=== PATIENT | female | born 1970 | race Caucasian/White ===

== ENCOUNTER 2020-01-11 09:04 | Emergency (ER) | payer OTHER, SELFPAY ==
[2020-01-11 09:18] VITALS: BP 109/52; PULSE 78; RESP 20; TEMP 36.2; O2SAT 97
--- NOTE | 2020-01-11 09:30 | ED.URI ---
HPI - URI/Sore Throat General Chief Complaint: Upper Respiratory Infection Stated Complaint: SORE THROAT/EARACHE Time Seen by Provider: 01/11/20 09:30 Source: patient and RN notes reviewed History of Present Illness HPI Narrative: Patient is a 49-year-old female that presents the urgent care with complaints of sore throat and bilateral earache. Patient states that started last night and is worse this morning. Patient has taken her daily dose of Claritin but otherwise no other medication [id number] for symptoms. Denies any nausea or vomiting, shortness of breath or cough. No acute distress noted. Patient aware the plan of care. Related Data Home Medications Medication Instructions Recorded Confirmed bupropion HCl 150 mg 24 hr tablet, 150 mg PO DAILY tablet 12/01/19 extended release cholecalciferol (vitamin D3) unit 01/11/20 [Vitamin D3] fluoxetine mg 01/11/20 fluoxetine mg 01/11/20 loratadine [Claritin] 10 mg PO DAILY PRN 01/11/20 01/11/20 Allergies Allergy/AdvReac Type Severity Reaction Status Date / Time hydrocodone AdvReac Intermediate HAS ITCHING Verified 01/11/20 09:14 Review of Systems Review of Systems: Narrative: CONSTITUTIONAL: Denies fever, chills, or sweats. EYES: Denies visual changes, redness, or discharge. ENT: Reports of sore throat bilateral otalgia CARDIOVASCULAR: Denies chest pain, palpitations, or edema. RESPIRATORY: Denies cough or dyspnea. GASTROINTESTINAL: Denies abdominal pain, nausea, vomiting, or diarrhea. GENITOURINARY: Denies dysuria or hematuria. SKIN: Denies rash or itching. MUSCULOSKELETAL: Denies back pain, joint pain, or myalgia. NEUROLOGIC: Denies headache, numbness, or weakness. All other systems reviewed are negative, except as documented in HPI. [facility] Family History Family History (Updated 06/28/17 @ 10:49 by DOCTOR UNKNOWN) Sibling Depression Mother Hypertension Cerebrovascular accident Family history of transient ischemic attacks Father Family history of Alzheimer's disease Family history of blood dyscrasia Other Diabetes mellitus Family history of coronary artery disease Social History Social History Smoking status: Never smoker Alcohol intake: never Comments At the time of my signature, I reviewed and agree with the nursing past medical, surgical, social, and family history. There is no relevant family history pertinent to the patient complaint. Exam Narrative: Exam Narrative: GENERAL: This is a well-nourished, well-developed patient, in no apparent distress. HEAD: normocephalic, atraumatic. EYES: PERRL. Sclera clear/white. Vision is grossly intact. EARS: External ears normal, auditory canals clear and without drainage, TMs normal without perforation. Hearing grossly intact. NOSE: External nose normal with no obvious nasal discharge, nares without redness, no rhinorrhea. THROAT: Mucous membranes moist, posterior pharynx clear. Mild postnasal drainage NECK: Neck supple, non-tender without lymphadenopathy CARDIOVASCULAR: Regular rate and rhythm without murmurs, gallops, or rubs. RESPIRATORY: Clear to auscultation. Breath sounds equal bilaterally. No wheezes, rales, or rhonchi. SKIN: warm, intact with no suspicious lesions or rash, good texture and turgor. NEURO: awake, alert, and oriented to person, place and time. There were no obvious focal neurologic abnormalities. EXTREMITIES: No clubbing, cyanosis, or edema. Course Vital Signs Vital signs: Vital Signs Temperature 97.2 F L 01/11/20 09:18 Pulse Rate 78 01/11/20 09:18 Respiratory Rate 20 01/11/20 09:18 Blood Pressure 109/52 L 01/11/20 09:18 Pulse Oximetry 97 01/11/20 09:18 Temperature 97.2 F L 01/11/20 09:18 Pulse Rate 78 01/11/20 09:18 Respiratory Rate 20 01/11/20 09:18 Blood Pressure 109/52 L 01/11/20 09:18 Pulse Oximetry 97 01/11/20 09:18 Reviewed MDM - URI/Sore Throat MDM Narrative Medical decision making narrative: Reviewed la
== END 2020-01-11 10:05 | disposition home or self-care (01) ==
PROVIDERS: Emergency Provider Nurse Practitioner Family; PCP Family Medicine
DX: B34.9 Viral infection, unspecified (principal); E11.9 Type 2 diabetes mellitus without complications
CPT/HCPCS: 87081; 87880; 99213; G0463

== ENCOUNTER 2020-06-19 20:08 | Emergency (ER) | payer OTHER, SELFPAY ==
--- NOTE | ~2020-06-19 | XR_ITS ---
EXAMINATION: XR chest 1V portable DATE: 06/19/2020 20:59 INDICATION: Cough and shortness of breath TECHNIQUE: frontal view of the chest was obtained. COMPARISON: None FINDINGS: Evaluation is limited by patient body habitus and portable technique. Lungs appear clear with no defi nitive airspace opacities, pulmonary edema, pleural effusion or pneumothorax. The cardiomediastinal s ilhouette is normal. IMPRESSION: 1. No acute cardiopulmonary disease. Evaluation limited by body habitus and portable technique. Reviewed, dictated and finalized at location A. IMPRESSION: 1. No acute cardiopulmonary disease. Evaluation limited by body habitus and por table technique.
[2020-06-19 20:12] VITALS: BP 151/80; PULSE 78; RESP 17; TEMP 36.9; O2SAT 96
--- NOTE | 2020-06-19 20:15 | ECG_ITS ---
Measurements Intervals [place] Rate: 83 P: 31 MO: 170 QRS: -8 QRSD: 84 T: 18 QT: 368 QTc: 435 Interpretive Statements SINUS RHYTHM LOW QRS VOLTAGE IN PRECORDIAL LEADS BORDERLINE R WAVE PROGRESSION, ANTERIOR LEADS BASELINE WANDER- III, V6 BORDERLINE ECG Electronically Signed On 06-20-2020 6:58:27 CDT by Nadeem Mcwilliams D.O.
--- NOTE | 2020-06-19 20:21 | ED.GENADULT ---
HPI - General Adult General Chief complaint: Shortness of Breath/Dyspnea Stated complaint: fatigue, fever, SOB Time Seen by Provider: 06/19/20 20:09 Source: patient Mode of arrival: EMS Limitations: no limitations History of Present Illness HPI narrative: Patient is a 49-year-old female who presents with 3 days duration of cough cold congestion shortness of breath fatigue and weakness patient was tested for COVID today does not know the results does work in the [employer] and has been out shopping but denies any known actual exposures patient on arrival to emergency department is in the room in no distress patient has not taken anything for his symptoms presents per EMS with child Related Data Home Medications Medication Instructions Recorded Confirmed bupropion HCl 150 mg 24 hr tablet, 150 mg PO DAILY tablet 12/01/19 02/24/20 extended release cholecalciferol (vitamin D3) unit 01/11/20 02/24/20 [Vitamin D3] loratadine [Claritin] 10 mg PO DAILY PRN 01/11/20 02/24/20 fluoxetine 20 mg capsule 20 mg PO DAILY cap 02/24/20 02/24/20 fluoxetine 40 mg capsule 40 mg PO DAILY cap 02/24/20 02/24/20 Allergies Allergy/AdvReac Type Severity Reaction Status Date / Time hydrocodone AdvReac Intermediate HAS ITCHING Verified 01/11/20 09:14 Review of Systems Review of Systems: All systems reviewed & are unremarkable except as noted in HPI and below PMFSH Past Medical History Medical History Anxiety Chronic low back pain with sciatica Depression Dyslipidemia Environmental allergies Hernia 2011 Type 2 diabetes mellitus without complication, without long-term current use of insulin Unspecified osteoarthritis, unspecified site Vitamin D deficiency Surgical History Surgical History History of cholecystectomy History of hernia surgery 2008 and 2011 History of prior ablation treatment 2101 from hernia Hx of section 1990, 1994, 1997, 2003, 2010 [place] teeth extracted 1992 Family History Family History Sibling Depression Mother Hypertension Cerebrovascular accident Family history of transient ischemic attacks Father Family history of Alzheimer's disease Family history of blood dyscrasia Other Diabetes mellitus Family history of coronary artery disease Social History Social History Smoking status: Never smoker Alcohol intake: never Gender identity (if verbalized by the patient): Female Exam Narrative: Exam Narrative: GENERAL: Well-appearing, obese, and in no acute distress. HEAD: Normocephalic, atraumatic. EYES: PERRLA and EOMI. ENT: Nares clear, no rhinorrhea or epistaxis. Mucous membranes moist. Oropharynx without tonsillar hypertrophy exudate or other lesions. NECK: Supple. No adenopathy or masses. CHEST: Clear to auscultation. No respiratory distress. No wheezes rales or rhonchi HEART: Regular rate and rhythm. No murmur heard. Normal peripheral pulses. ABDOMEN: Soft, nontender, nondistended EXTREMITIES: Normal range of motion. No edema. SKIN: Warm, dry, no rash. NEURO: No focal deficits. Alert and oriented x3. PSYCH: Normal mood and affect. Course Vital Signs Vital signs: Vital Signs Temperature 98.5 F 06/19/20 20:12 Pulse Rate 78 06/19/20 20:12 Respiratory Rate 17 06/19/20 20:12 Blood Pressure 151/80 H 06/19/20 20:12 Pulse Oximetry 96 06/19/20 20:12 Temperature 98.5 F 06/19/20 20:12 Pulse Rate 78 06/19/20 20:12 Respiratory Rate 17 06/19/20 20:12 Blood Pressure 151/80 H 06/19/20 20:12 Pulse Oximetry 96 06/19/20 20:12 Medical Decision Making MDM Narrative Medical decision making narrative: Patient in the room in no distress felt appropriate for discharge home hemodynamically stable afeb
[2020-06-19] MEDS: SODIUM CHLORIDE 0.9% IV 1,000 ML 999 ML IV CONT (20:31)
[2020-06-19] MEDS: ONDANSETRON INJ 4 MG/2 ML VIAL IV PUSH (20:31)
[2020-06-19 21:07] LABS: Basophils Absolute Auto 0.1 K/mm3 (0.0-0.1); Basophils Percent Auto 0.6 % (0.2-1.2); Eosinophils Absolute Auto 0.2 K/mm3 (0-0.3); Eosinophils Percent Auto 1.8 % (0-4.4); Hemoglobin 15.3 g/dL (12.0-15.0); Immature Granulocyte Absolute 0.05 K/mm3 (0.00-0.031); Immature Granulocyte Percent A 0.5 % (0-0.5); Lymphocytes Absolute Auto 2.62 K/mm3 (0.9-3.2); Lymphocytes Percent Auto 24.2 % (18.3-44.2); Mean Corpuscular HGB Conc 32.6 g/dl (32-36); Mean Corpuscular Hemoglobin 28.2 pg (26-34); Mean Corpuscular Volume 86.7 fl (80-100); Mean Platelet Volume 11.2 fl (7.4-10.4); Monocytes Absolute Auto 0.6 K/mm3 (0.1-0.6); Monocytes Percent Auto 5.5 % (2.6-8.5); Neutrophils Absolute Auto 7.3 K/mm3 (1.3-6.7); Neutrophils Percent Auto 67.4 % (45.5-73.1); Platelet Count Result 281 k/mm3 (150-375); Red Blood Count 5.42 M/mm3 (4.2-5.4); Red Cell Distribution Width 13.4 % (11.5-14.5); White Blood Count 10.8 K/mm3 (4.5-10.0)
[2020-06-19 21:09] LABS: Add Urine Microscopic? YES; Appearance Urine Clear (Clear); Bilirubin Urine Negative (Negative); Blood Urine Negative (Negative); Color Urine Straw (Yellow); Glucose Urine UA 3+ mg/dL (Negative); Ketones Urine Negative (Negative); Leukocyte Esterase Ur Negative LEU/UL (Negative); Mucus Urine Rare /lpf; Nitrate Urine Negative (Negative); Protein Urine Negative (Negative); RBC Urine 0-2 /hpf (0-2); Squamous Epithelial Cell Urine Rare /hpf (Few); Urobilinogen Urine Negative mg/dL (<2.0); WBC Urine 0-3 /hpf
[2020-06-19 21:14] LABS: Partial Thromboplastin Time 24.2 SECONDS (22.3-36.8); Prothrombin Time 12.8 Seconds (11.1-14.7)
[2020-06-19 21:16] LABS: Lactic Acid Reflex 1.5 mmol/L (0.7-2.1)
[2020-06-19 21:34] LABS: Alanine Aminotransferase 78 U/L (4-35); Albumin Level 4.4 g/dL (3.5-5.1); Alkaline Phosphatase 148 U/L (38-126); Anion Gap 9 mmol/L (8-16); Aspartate Amino Transferase 32 U/L (14-36); Bilirubin,Total 0.2 mg/dL (0.2-1.3); Blood Urea Nitrogen 16 mg/dL (7-17); CRP 1.6 mg/dL (<1.0); Calcium 9.4 mg/dL (8.4-10.2); Carbon Dioxide 26 mmol/L (22-30); Chloride 103 mmol/L (98-107); Estimated Glomerular Filt Rate > 60; Glucose 235 mg/dL (65-105); Lipase 171 U/L (23-300); Potassium 4.1 mmol/L (3.4-5.0); Sodium 138 mmol/L (137-145)
[2020-06-19 22:02] VITALS: BP 115/56; PULSE 74; RESP 20; O2SAT 96
== END 2020-06-19 22:04 | disposition home or self-care (01) ==
PROVIDERS: Emergency Medicine Emergency Medical Services; Emergency Provider Emergency Medicine
DX: J06.9 Acute upper respiratory infection, unspecified (principal); F41.9 Anxiety disorder, unspecified; F32.9 Major depressive disorder, single episode, unspecified; E78.5 Hyperlipidemia, unspecified; E11.9 Type 2 diabetes mellitus without complications; E55.9 Vitamin D deficiency, unspecified; M19.90 Unspecified osteoarthritis, unspecified site
CPT/HCPCS: 36415; 71045; 80053; 81001; 83605; 83690; 85025; 85610; 85730; 86140; 87040; 93005; 96361; 96374; 96375; 99284; J0131; J2405; J7030

== ENCOUNTER → 2021-02-09 14:13 | Outpatient (CLI) | payer OTHER, SELFPAY ==
--- NOTE | ~2021-02-09 | MM_ITS ---
EXAMINATION: MM screening [facility] BI w miguel HISTORY: Screening TECHNIQUE: Craniocaudal and mediolateral oblique 3-D tomosynthesis images were obtained and synthetic 2-D images were generated. CAD analysis was submitted and interpreted. COMPARISON: Comparison to multiple prior studies sequentially, with oldest reviewed study dated 01/2012. BREAST PARENCHYMAL COMPOSITION: There are scattered areas of fibroglandular density. FINDINGS: There is no evidence of suspicious mass, calcification, or architectural distortion to sugg est malignancy in either breast. There has been no suspicious interval change. IMPRESSION: 1. No mammographic evidence of malignancy. 2. Recommend routine screening mammography in one year. BI-RADS Category 1: Negative Reviewed, dictated and finalized at location A.
== END ==
PROVIDERS: Visit Provider Nurse Practitioner
DX: Z12.31 Encounter for screening mammogram for malignant neoplasm of breast (principal)
CPT/HCPCS: 77063; 77067

== ENCOUNTER 2021-10-08 12:08 | Emergency (ER) | payer OTHER, SELFPAY ==
[2021-10-08 12:13] VITALS: BP 153/88; PULSE 83; RESP 16; TEMP 36.1; O2SAT 98
--- NOTE | 2021-10-08 12:37 | ED.URI ---
HPI - URI/Sore Throat General Chief Complaint: Upper Respiratory Infection Stated Complaint: sore throat,ear ache Time Seen by Provider: 10/08/21 12:18 Source: patient and RN notes reviewed Mode of arrival: ambulatory Limitations: no limitations History of Present Illness HPI Narrative: Patient presents today complaining of a 2-week history of intermittent sore throat, bilateral ear pain, and mild cough. Denies any additional symptoms. She currently rates pain 2/10 and has tried no [id number]-[id number] interventions prior to arrival. 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 MD elicited complaint: sore throat Related Data Home Medications Medication Instructions Recorded Confirmed bupropion HCl 150 mg 24 hr tablet, 150 mg PO DAILY tablet 12/01/19 07/22/21 extended release cholecalciferol (vitamin D3) unit 01/11/20 07/22/21 [Vitamin D3] loratadine [Claritin] 10 mg PO DAILY PRN 01/11/20 07/22/21 fluoxetine 20 mg capsule 20 mg PO DAILY cap 02/24/20 07/22/21 fluoxetine 40 mg capsule 40 mg PO DAILY cap 02/24/20 07/22/21 Allergies Allergy/AdvReac Type Severity Reaction Status Date / Time hydrocodone AdvReac Intermediate HAS ITCHING Verified 07/22/21 09:41 Review of Systems Review of Systems: CONSTITUTIONAL: Denies body aches, fever, chills, or sweats. EYES: Denies visual changes, redness, or discharge. ENT: Denies rhinorrhea, congestion. + Sore throat, ear pain CARDIOVASCULAR: Denies chest pain, palpitations, or edema. RESPIRATORY: Denies dyspnea.+ Cough GASTROINTESTINAL: Denies abdominal pain, nausea, vomiting, or diarrhea. GENITOURINARY: Denies dysuria or hematuria. SKIN: Denies rash, itching, or wounds. MUSCULOSKELETAL: Denies back pain, joint pain, or myalgia. NEUROLOGIC: Denies headache, numbness, tingling, or weakness. PSYCH: Denies depression or anxiety. [facility] Past Medical History Medical History (Updated 10/08/21 @ 12:40 by Elizabeth Russell, [employer]DER, [place]) Anxiety Chronic low back pain with sciatica Depression Dyslipidemia Environmental allergies Hernia 2012 Type 2 diabetes mellitus without complication, without long-term current use of insulin Unspecified osteoarthritis, unspecified site Vitamin D deficiency Surgical History Surgical History History of cholecystectomy History of hernia surgery 2008 and 2011 History of prior ablation treatment 2101 from hernia Hx of section 1990, 1994, 1997, 2003, 2010 [place] teeth extracted 1992 Family History Family History Sibling Depression Mother Hypertension Cerebrovascular accident Family history of transient ischemic attacks Father Family history of Alzheimer's disease Family history of blood dyscrasia Other Diabetes mellitus Family history of coronary artery disease Social History Social History Smoking status: Former smoker Alcohol intake: never Gender identity (if verbalized by the patient): Female Comments At time of signature, I have reviewed and agree with nursing past medical, surgical, social and family history unless otherwise noted. Please see nursing chart for further information. There is no relevant family history pertinent to the presenting complaint Exam Narrative: GENERAL: Well-appearing, well-nourished, and in no acute distress. HEAD: Normocephalic, atraumatic. EYES: EOMI. No redness or drainage. Conjunctivae normal. ENT: Mucous membranes pink and moist. Nares clear. No rhinorrhea. TMs normal bilaterally. Throat normal. Uvula midline. NECK: Normal AROM. Supple. No lymphadenopathy. CHEST: No respiratory distress. Clear to auscultation. HEART: Regular rate and rhythm. No murmur appreciated. Normal peripheral pulses. EXTREMITIES: Normal range of mot
== END 2021-10-08 12:46 | disposition home or self-care (01) ==
PROVIDERS: Emergency Provider Nurse Practitioner; PCP Family Medicine
DX: J06.9 Acute upper respiratory infection, unspecified (principal); Z87.891 Personal history of nicotine dependence; E78.5 Hyperlipidemia, unspecified; E11.9 Type 2 diabetes mellitus without complications; M19.90 Unspecified osteoarthritis, unspecified site; E55.9 Vitamin D deficiency, unspecified
CPT/HCPCS: 87081; 87880; 99213; G0463

== ENCOUNTER → 2022-09-04 14:02 | Outpatient (CLI) | payer OTHER, SELFPAY ==
--- NOTE | ~2022-09-04 | MM_ITS ---
EXAMINATION: MM screening [facility] BI w miguel HISTORY: Screening mammogram TECHNIQUE: Craniocaudal and mediolateral oblique 3-D tomosynthesis images were obtained and synthetic 2-D images were generated. CAD analysis was submitted and interpreted. COMPARISON: 02/09/2021, 05/29/2017 bilateral screening mammogram examinations BREAST PARENCHYMAL COMPOSITION: The breasts are almost entirely fatty. FINDINGS: There is no evidence of suspicious mass, calcification, or architectural distortion to sugg est malignancy in either breast. There has been no suspicious interval change. IMPRESSION: 1. No mammographic evidence of malignancy. 2. Recommend routine screening mammography in one year. BI-RADS Category 1: Negative Reviewed, dictated and finalized at location A. [facility]
== END ==
PROVIDERS: PCP Family Medicine; Visit Provider Obstetrics & Gynecology Gynecology
DX: Z12.31 Encounter for screening mammogram for malignant neoplasm of breast (principal)
CPT/HCPCS: 77063; 77067

== ENCOUNTER 2022-09-20 08:25 | Outpatient (CLI) | payer OTHER, SELFPAY ==
[2022-09-20 18:30] LABS: Basophils Absolute Auto 0.1 K/mm3 (0.0-0.1); Basophils Percent Auto 1.1 % (0.2-1.2); Eosinophils Absolute Auto 0.1 K/mm3 (0-0.3); Eosinophils Percent Auto 1.7 % (0-4.4); Hematocrit 50.1 % (37.0-47.0); Hemoglobin 15.6 g/dL (12.0-15.0); Immature Granulocyte Absolute 0.03 K/mm3 (0.00-0.031); Immature Granulocyte Percent A 0.4 % (0-0.5); Lymphocytes Absolute Auto 2.85 K/mm3 (0.9-3.2); Lymphocytes Percent Auto 34.6 % (18.3-44.2); Mean Corpuscular HGB Conc 31.1 g/dl (32-36); Mean Corpuscular Hemoglobin 28.3 pg (26-34); Mean Corpuscular Volume 90.8 fl (80-100); Mean Platelet Volume 11.4 fl (7.4-10.4); Monocytes Absolute Auto 0.6 K/mm3 (0.1-0.6); Monocytes Percent Auto 6.8 % (2.6-8.5); Neutrophils Absolute Auto 4.6 K/mm3 (1.3-6.7); Neutrophils Percent Auto 55.4 % (45.5-73.1); Platelet Count Result 253 k/mm3 (150-375); Red Blood Count 5.52 M/mm3 (4.2-5.4); Red Cell Distribution Width 13.2 % (11.5-14.5); White Blood Count 8.2 K/mm3 (4.5-10.0)
[2022-09-20 18:36] LABS: Hemoglobin A1C 9.1 % (<5.7)
[2022-09-20 18:37] LABS: Alanine Aminotransferase 77 U/L (6-35); Albumin Level 4.3 g/dL (3.5-5.1); Alkaline Phosphatase 133 U/L (38-126); Anion Gap 11 mmol/L (8-16); Aspartate Amino Transferase 62 U/L (14-36); Bilirubin,Total 0.5 mg/dL (0.2-1.3); Blood Urea Nitrogen 18 mg/dL (7-17); Calcium 9.1 mg/dL (8.4-10.2); Carbon Dioxide 27 mmol/L (22-30); Chloride 104 mmol/L (98-107); Cholesterol 198 mg/dL (0-200); Estimated Glomerular Filt Rate > 60; Glucose 177 mg/dL (65-110); HDL Direct 47 mg/dL; Sodium 142 mmol/L (137-145); Triglycerides 187 mg/dL (<150)
[2022-09-20 18:48] LABS: LDL Cholesterol Direct 106 mg/dL
[2022-09-20 18:54] LABS: Creatinine Urine 64.7 mg/dL
[2022-09-20 18:58] LABS: MALB Creatinine Ratio 47.3 mg/g (0-30); Microalbumin Urine Random 30.6 mg/L (0-16.7)
== END 2022-09-20 08:26 | disposition home or self-care (01) ==
LOC: ANHGOSHLAB 08:30
PROVIDERS: PCP Family Medicine; Visit Provider Nurse Practitioner
DX: E78.5 Hyperlipidemia, unspecified (principal); E11.9 Type 2 diabetes mellitus without complications; E55.9 Vitamin D deficiency, unspecified
CPT/HCPCS: 36415; 80053; 80061; 82043; 82306; 83036; 85025

== ENCOUNTER 2022-11-18 19:24 | Emergency (ER) | payer OTHER, SELFPAY ==
[2022-11-18 19:43] VITALS: BP 117/82; PULSE 110; RESP 16; TEMP 36; O2SAT 97
--- NOTE | 2022-11-18 19:51 | ED.GENADULT ---
HPI - General Adult General Chief complaint: Upper Respiratory Infection Stated complaint: sore throat, ear pain Source: patient Mode of arrival: ambulatory Limitations: no limitations History of Present Illness HPI narrative: Patient presents for evaluation of sore throat for the last 2 days. She states that it hurts to swallow. She no his right-sided ear pain. She denies any fever, chills, nausea, vomiting. She has an occasional cough and states that her sore throat is worse when coughing. No identified recent specific sick contacts. 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 She has been exposed to several individuals were not wearing masks and her company. She is taking Mucinex and DayQuil with improvement in her symptoms or after. She does not smoke. Related Data Home Medications Medication Instructions Recorded Confirmed bupropion HCl 150 mg 24 hr tablet, 150 mg PO DAILY 12/01/19 08/25/22 extended release (Wellbutrin XL) cholecalciferol (vitamin D3) 100 unit 01/11/20 08/25/22 mcg (4,000 unit) capsule (Vitamin D3) loratadine 10 mg tablet (Claritin) 10 mg PO DAILY PRN Congestion 01/11/20 08/25/22 fluoxetine 20 mg capsule 20 mg PO DAILY 02/24/20 08/25/22 fluoxetine 40 mg capsule 40 mg PO DAILY 02/24/20 08/25/22 Allergies Allergy/AdvReac Type Severity Reaction Status Date / Time hydrocodone AdvReac Intermediate HAS ITCHING Verified 11/18/22 19:49 Review of Systems Review of Systems: CONSTITUTIONAL: Denies fever, chills, or sweats. EYES: Denies visual changes, redness, or discharge. ENT: Reports sore throat and right-sided ear pain. Denies congestion or rhinorrhea. CARDIOVASCULAR: Denies chest pain, palpitations, or edema. RESPIRATORY: Reports occasional cough. Denies dyspnea. GASTROINTESTINAL: Denies abdominal pain, nausea, vomiting, or diarrhea. GENITOURINARY: Denies dysuria or hematuria. SKIN: Denies rash or itching. MUSCULOSKELETAL: Denies back pain, joint pain, or myalgia. NEUROLOGIC: Denies headache, numbness, dizziness, or weakness. PSYCHIATRIC: Denies anxiety or depression. [facility] Past Medical History Medical History Anxiety Chronic low back pain with sciatica Depression Dyslipidemia Environmental allergies Hernia 2011 Type 2 diabetes mellitus without complication, without long-term current use of insulin Unspecified osteoarthritis, unspecified site Vitamin D deficiency Surgical History Surgical History History of cholecystectomy History of hernia surgery 2008 and 2011 History of prior ablation treatment 2101 from hernia Hx of section 1990, 1994, 1997, 2003, 2010 [place] teeth extracted 1992 Family History Family History Sibling Depression Mother Hypertension Cerebrovascular accident Family history of transient ischemic attacks Father Family history of Alzheimer's disease Family history of blood dyscrasia Other Diabetes mellitus Family history of coronary artery disease Social History Social History Smoking status: Former smoker Alcohol intake: never Substance use: never Gender identity (if verbalized by the patient): Female Spiritual care concerns: No Exam Narrative: GENERAL: Well-appearing, well-nourished, and in no acute distress. HEAD: Normocephalic, atraumatic. EYES: PERRLA and EOMI. ENT: Nares clear, no rhinorrhea or epistaxis. Mucous membranes moist. There is posterior pharyngeal erythema and white exudate. Uvula is midline.Bilateral TMs pearly briscoe nonbulging NECK: Supple. No adenopathy or masses. No carotid bruits or JVD CHEST: Clear to auscultation. No respiratory distress. No wheezes rales or rhonchi HEART: Regular rate and rhythm. No mur
== END 2022-11-18 19:59 | disposition home or self-care (01) ==
PROVIDERS: Emergency Provider Nurse Practitioner; PCP Nurse Practitioner
DX: J02.9 Acute pharyngitis, unspecified (principal); Z87.891 Personal history of nicotine dependence; E78.5 Hyperlipidemia, unspecified; E11.9 Type 2 diabetes mellitus without complications; M19.90 Unspecified osteoarthritis, unspecified site; E55.9 Vitamin D deficiency, unspecified; F41.9 Anxiety disorder, unspecified; F32.A Depression, unspecified; Z79.84 Long term (current) use of oral hypoglycemic drugs
CPT/HCPCS: 87081; 87880; 99213; G0463

== ENCOUNTER 2023-05-11 08:45 | Outpatient (CLI) | payer OTHER, SELFPAY ==
[2023-05-11 19:16] LABS: Alanine Aminotransferase 73 U/L (6-35); Albumin Level 4.4 g/dL (3.5-5.1); Alkaline Phosphatase 148 U/L (38-126); Anion Gap 9 mmol/L (8-16); Aspartate Amino Transferase 43 U/L (14-36); Bilirubin,Total 0.3 mg/dL (0.2-1.3); Blood Urea Nitrogen 12 mg/dL (7-17); Calcium 9.8 mg/dL (8.4-10.2); Carbon Dioxide 29 mmol/L (22-30); Chloride 103 mmol/L (98-107); Cholesterol 215 mg/dL (0-200); Estimated Glomerular Filt Rate > 60; Glucose 212 mg/dL (65-110); HDL Direct 41 mg/dL; Potassium 4.4 mmol/L (3.4-5.0); Sodium 141 mmol/L (137-145); Triglycerides 172 mg/dL (<150)
[2023-05-11 19:27] LABS: LDL Cholesterol Direct 127 mg/dL
[2023-05-11 19:34] LABS: Basophils Absolute Auto 0.1 K/mm3 (0.0-0.1); Basophils Percent Auto 1.1 % (0.2-1.2); Eosinophils Absolute Auto 0.1 K/mm3 (0-0.3); Eosinophils Percent Auto 1.5 % (0-4.4); Hematocrit 50.4 % (37.0-47.0); Hemoglobin 16.1 g/dL (12.0-15.0); Immature Granulocyte Absolute 0.03 K/mm3 (0.00-0.031); Immature Granulocyte Percent A 0.3 % (0-0.5); Lymphocytes Absolute Auto 2.84 K/mm3 (0.9-3.2); Lymphocytes Percent Auto 32.1 % (18.3-44.2); Mean Corpuscular HGB Conc 31.9 g/dl (32-36); Mean Corpuscular Hemoglobin 29.1 pg (26-34); Mean Platelet Volume 11.2 fl (7.4-10.4); Monocytes Absolute Auto 0.6 K/mm3 (0.1-0.6); Monocytes Percent Auto 7.1 % (2.6-8.5); Neutrophils Absolute Auto 5.1 K/mm3 (1.3-6.7); Neutrophils Percent Auto 57.9 % (45.5-73.1); Platelet Count Result 266 k/mm3 (150-375); Red Blood Count 5.54 M/mm3 (4.2-5.4); White Blood Count 8.9 K/mm3 (4.5-10.0)
[2023-05-11 20:01] LABS: Vitamin D 25 Hydroxy 52.3 ng/mL
[2023-05-11 20:09] LABS: Hemoglobin A1C 9.5 % (<5.7)
[2023-05-12 01:31] LABS: Creatinine Urine 33.3 mg/dL
[2023-05-12 01:46] LABS: MALB Creatinine Ratio 64.6 mg/g (0-30); Microalbumin Urine Random 21.5 mg/L (0-16.7)
== END 2023-05-11 08:46 | disposition home or self-care (01) ==
LOC: ANHGOSHLAB 08:49
PROVIDERS: PCP Nurse Practitioner; Visit Provider Nurse Practitioner Family
DX: E11.9 Type 2 diabetes mellitus without complications (principal); E78.5 Hyperlipidemia, unspecified; E55.9 Vitamin D deficiency, unspecified
CPT/HCPCS: 36415; 80053; 80061; 82043; 82306; 83036; 85025

== ENCOUNTER 2023-07-25 14:17 | Emergency (ER) | payer OTHER, SELFPAY ==
--- NOTE | ~2023-07-25 | XR_ITS ---
EXAMINATION: XR chest 2V DATE: 07/25/2023 14:55 INDICATION: Right-sided chest pain TECHNIQUE: Frontal and lateral views of the chest are obtained COMPARISON: 06/19/2020 FINDINGS: The lungs are free of acute opacities. No pleural effusion or pneumothorax. The cardiomedia stinal silhouette is normal. There is moderate thoracic spondylosis. IMPRESSION: 1. No acute cardiopulmonary abnormality. Reviewed, dictated and finalized at location F.
--- NOTE | 2023-07-25 14:19 | ECG_ITS ---
Measurements Intervals [place] Rate: 89 P: 52 ME: 176 QRS: -7 QRSD: 70 T: 25 QT: 354 QTc: 433 Interpretive Statements SINUS RHYTHM POSSIBLE LEFT ATRIAL ENLARGEMENT LOW QRS VOLTAGE IN PRECORDIAL LEADS BORDERLINE R WAVE PROGRESSION, ANTERIOR LEADS BORDERLINE ECG COMPARED TO ECG 06/19/2020 20:29:07 NO SIGNIFICANT CHANGES Electronically Signed On 07-25-2023 15:14:48 CDT by Nadeem Mcwilliams D.O.
[2023-07-25 14:30] VITALS: BP 115/86; PULSE 93; RESP 18; TEMP 36.6; O2SAT 99
[2023-07-25 14:34] LABS: Basophils Absolute Auto 0.1 K/mm3 (0.0-0.1); Basophils Percent Auto 0.8 % (0.2-1.2); Eosinophils Absolute Auto 0.1 K/mm3 (0-0.3); Eosinophils Percent Auto 1.3 % (0-4.4); Hematocrit 50.8 % (37.0-47.0); Hemoglobin 16.1 g/dL (12.0-15.0); Immature Granulocyte Absolute 0.04 K/mm3 (0.00-0.031); Immature Granulocyte Percent A 0.4 % (0-0.5); Lymphocytes Absolute Auto 3.16 K/mm3 (0.9-3.2); Lymphocytes Percent Auto 31.4 % (18.3-44.2); Mean Corpuscular HGB Conc 31.7 g/dl (32-36); Mean Corpuscular Hemoglobin 29.4 pg (26-34); Mean Corpuscular Volume 92.9 fl (80-100); Mean Platelet Volume 10.7 fl (7.4-10.4); Monocytes Absolute Auto 0.8 K/mm3 (0.1-0.6); Monocytes Percent Auto 7.6 % (2.6-8.5); Neutrophils Absolute Auto 5.9 K/mm3 (1.3-6.7); Neutrophils Percent Auto 58.5 % (45.5-73.1); Platelet Count Result 276 k/mm3 (150-375); Red Blood Count 5.47 M/mm3 (4.2-5.4); Red Cell Distribution Width 13.2 % (11.5-14.5); White Blood Count 10.1 K/mm3 (4.5-10.0)
[2023-07-25 14:45] LABS: Alanine Aminotransferase 69 U/L (6-35); Albumin Level 4.7 g/dL (3.5-5.1); Alkaline Phosphatase 157 U/L (38-126); Anion Gap 13 mmol/L (8-16); Aspartate Amino Transferase 40 U/L (14-36); Bilirubin,Total 0.5 mg/dL (0.2-1.3); Blood Urea Nitrogen 11 mg/dL (7-17); Calcium 9.3 mg/dL (8.4-10.2); Carbon Dioxide 19 mmol/L (22-30); Chloride 106 mmol/L (98-107); Estimated CRCL calculation 134 ml/min; Estimated Glomerular Filt Rate > 60; Glucose 263 mg/dL (65-110); Lipase 247 U/L (23-300); Potassium 3.9 mmol/L (3.4-5.0); Sodium 138 mmol/L (137-145)
[2023-07-25 14:46] LABS: INR 0.9; Prothrombin Time 12.4 Seconds (11.1-14.7)
[2023-07-25 14:55] LABS: Troponin I < 0.012 ng/mL (0.000-0.034)
--- NOTE | 2023-07-25 16:04 | ED.CHESTPAIN ---
HPI - Chest Pain General Chief Complaint: Chest Pain Stated Complaint: chest pain Time Seen by Provider: 07/25/23 15:53 History of Present Illness HPI narrative: 52-year-old female history of diabetes anxiety depression presents to the emergency room for evaluation of right anterior chest wall discomfort. Patient states that this happened with no precipitating events earlier today. Pain is worse with inspiration. Denies any palpitation shortness of breath difficulty breathing. Patient does endorse recent history of coughing. Pain does not radiate. Has not taken any medications to alleviate her symptoms. Denies fevers. Related Data Home Medications Medication Instructions Recorded Confirmed bupropion HCl 150 mg 24 hr tablet, 150 mg PO DAILY 12/01/19 02/28/23 extended release (Wellbutrin XL) cholecalciferol (vitamin D3) 100 4,000 unit PO DIRECTED 01/11/20 02/28/23 mcg (4,000 unit) capsule (Vitamin D3) loratadine 10 mg tablet (Claritin) 10 mg PO DAILY PRN Congestion 01/11/20 02/28/23 fluoxetine 20 mg capsule 20 mg PO DAILY 02/24/20 02/28/23 fluoxetine 40 mg capsule 40 mg PO DAILY 02/24/20 02/28/23 Allergies Allergy/AdvReac Type Severity Reaction Status Date / Time hydrocodone AdvReac Intermediate HAS ITCHING Verified 11/18/22 19:49 Review of Systems Review of Systems: CONSTITUTIONAL: Denies fever, chills, or sweats. EYES: Denies visual changes, redness, or discharge. ENT: Denies rhinorrhea, congestion, sore throat, or otalgia. CARDIOVASCULAR: Per HPI, chest pain RESPIRATORY: Denies cough or dyspnea. GASTROINTESTINAL: Denies abdominal pain, nausea, vomiting, or diarrhea. GENITOURINARY: Denies dysuria or hematuria. SKIN: Denies rash or itching. MUSCULOSKELETAL: Denies back pain, joint pain, or myalgia. NEUROLOGIC: Denies headache, numbness, dizziness, or weakness. PSYCHIATRIC: Denies anxiety or depression. [facility] Past Medical History Medical History Anxiety Chronic low back pain with sciatica Depression Dyslipidemia Environmental allergies Hernia 2012 Type 2 diabetes mellitus without complication, without long-term current use of insulin Unspecified osteoarthritis, unspecified site Vitamin D deficiency Surgical History Surgical History History of cholecystectomy History of hernia surgery 2008 and 2011 History of prior ablation treatment 2101 from hernia Hx of section 1990, 1994, 1997, 2003, 2010 [place] teeth extracted 1992 Family History Family History Sibling Depression Mother Hypertension Cerebrovascular accident Family history of transient ischemic attacks Father Family history of Alzheimer's disease Family history of blood dyscrasia Other Diabetes mellitus Family history of coronary artery disease Social History Social History Smoking status: Former smoker Alcohol intake: never Substance use: never Gender identity (if verbalized by the patient): Female Spiritual care concerns: No Exam Narrative: GENERAL: Well-appearing, well-nourished, no physical limitations, and in no acute distress. HEAD: Normocephalic, atraumatic. EYES: Conjunctivae normal, PERRLA and EOMI. CHEST: Clear to auscultation. No respiratory distress. No wheezes rales or rhonchi. HEART: Regular rate and rhythm. No murmur heard. Normal peripheral pulses. EXTREMITIES: Normal range of motion. No edema. No clubbing or cyanosis SKIN: Warm, dry, no rash. No noted wounds NEURO: No focal deficits. Alert and oriented x3. MAEW. CN's II-XI intact bilaterally, normal gait PSYCH: Cooperative. Normal mood and affect. Course Vital Signs Vital signs: Vital Signs Temperature 36.6 C 07/25/23 14:30 Pulse Rate 93 07/25/23 14:30 Respiratory Rat
[2023-07-25 16:23] LABS: D Dimer < 0.27 ug/mL (<0.48)
[2023-07-25 16:37] VITALS: BP 106/58; PULSE 87; RESP 18; O2SAT 96
== END 2023-07-25 16:49 | disposition home or self-care (01) ==
PROVIDERS: Emergency Medicine; Emergency Provider Nurse Practitioner Family; PCP Family Medicine
DX: R09.1 Pleurisy (principal); E11.9 Type 2 diabetes mellitus without complications; E78.5 Hyperlipidemia, unspecified; E55.9 Vitamin D deficiency, unspecified; M19.90 Unspecified osteoarthritis, unspecified site; F41.9 Anxiety disorder, unspecified; F32.A Depression, unspecified; Z90.49 Acquired absence of other specified parts of digestive tract; Z87.891 Personal history of nicotine dependence; Z79.84 Long term (current) use of oral hypoglycemic drugs; Z79.85 Long-term (current) use of injectable non-insulin antidiabetic drugs; R94.31 Abnormal electrocardiogram [ECG] [EKG]
CPT/HCPCS: 36415; 71046; 80053; 83690; 84484; 85025; 85380; 85610; 85730; 93005; 99284

== ENCOUNTER 2023-10-15 01:49 | Day surgery (SDC) | payer OTHER, SELFPAY ==
[2023-09-27 12:44] VITALS: BMI 47.1
--- NOTE | 2023-10-12 09:27 | SUR.PREOP ---
Patient called regarding upcoming procedure. Message left on pt's voicemail regarding appointment times.
[2023-10-15 07:12] VITALS: BP 151/84; PULSE 104; RESP 18; TEMP 36.1; O2SAT 96; BMI 44.0
[2023-10-15] MEDS: LACTATED RINGERS 1,000 ML 150 ML IV CONT (07:49)
[2023-10-15 07:50] LABS: Glucose Point of Care 308 mg/dl (65-105)
--- NOTE | 2023-10-15 08:07 | WPDANESEPPF ---
Anes - Initial Pre Proc Eval Procedure: Operation Date: 10/15/23 08:30 Proposed Procedures p Screening Colonoscopy - Cam Moise MD Date/Time: 10/15/23 08:07 Surgeon: Cam Moise MD Pre Op Diagnosis: neoplasm screening Patient Data Age: 52 Gender: F Height: 1.7 m Weight: 127.5 kg Last Vital Signs Temp 36.1 C L 10/15/23 07:12 Pulse 104 H 10/15/23 07:12 Resp 18 10/15/23 07:12 BP 151/84 H 10/15/23 07:12 Pulse Ox 96 10/15/23 07:12 O2 Del Method Room Air 10/15/23 07:12 Allergies Allergy/AdvReac Type Severity Reaction Status Date / Time hydrocodone AdvReac Intermediate HAS ITCHING Verified 10/15/23 07:22 Home Medications Medication Instructions Recorded Confirmed Type cholecalciferol (vitamin D3) 100 4,000 unit PO DAILY 01/11/20 10/15/23 History mcg (4,000 unit) capsule (Vitamin D3) loratadine 10 mg tablet (Claritin) 10 mg PO DAILY PRN Congestion 01/11/20 10/15/23 History empagliflozin 25 mg tablet 25 mg PO DAILY #90 tabs 04/13/23 10/15/23 Rx (Jardiance) dulaglutide 0.75 mg/0.5 mL 0.75 mg (0.5 mL) subcut WEEKLY #2 06/26/23 10/15/23 Rx subcutaneous pen injector mL (Trulicity) bupropion HCl 150 mg 24 hr tablet, 150 mg PO DAILY #30 tabs 09/25/23 10/15/23 Rx extended release (Wellbutrin XL) metformin 500 mg tablet,extended 1,000 mg PO BID 09/27/23 10/15/23 History release 24 hr sitagliptin phosphate 100 mg 100 mg PO DAILY #30 tabs 09/28/23 10/15/23 Rx tablet (Januvia) fluoxetine 20 mg capsule 20 mg PO DAILY #30 caps 10/11/23 10/15/23 Rx fluoxetine 40 mg capsule 40 mg PO DAILY #30 caps 10/11/23 10/15/23 Rx Laboratory Tests 10/15/23 07:40 POC Capillary Glucose 308 H mg/dl (65-105) Patient hx anesthesia problems: none Family hx anesthesia problems: none Results Review: All pre-operative results and documents have been reviewed as part of the pre-operative evaluation. [facility] Past Medical History Medical History Anxiety Chronic low back pain with sciatica Depression Dyslipidemia Environmental allergies Hernia 2011 Type 2 diabetes mellitus without complication, without long-term current use of insulin Unspecified osteoarthritis, unspecified site Vitamin D deficiency Surgical History Surgical History History of cholecystectomy History of hernia surgery 2008 and 2011 History of prior ablation treatment 2101 from hernia Hx of section 1990, 1994, 1997, 2003, 2010 [place] teeth extracted 1992 Family History Family History Sibling Depression Mother Hypertension Cerebrovascular accident Family history of transient ischemic attacks Father Family history of Alzheimer's disease Family history of blood dyscrasia Other Diabetes mellitus Family history of coronary artery disease Social History Social History Smoking status: Former smoker Alcohol intake: never Substance use: never Substance use type: does not use Living arrangements: with family Gender identity (if verbalized by the patient): Female Spiritual care concerns: No Anes - Eval Final PreProcedure Day of Procedure 10/15/23 08:07 Patient weight: morbidly obese Heart: regular rate and rhythm Lungs: clear to auscultation Airway: Mallampati scale class III Neurological: alert and oriented Last oral intake: >/= 8 hours ASA classification: III Emergent: no Anesthetic plan: proceed Anesthesia type and monitoring: general GIVS and standard monitoring Results Review: All pre-operative results and documents have been reviewed as part of the pre-operative evaluation. Informed Consent: The patient's anesthetic plan and its attendant risks and benefits were discussed w
--- NOTE | 2023-10-15 08:31 | PM.HPGS ---
History of Present Illness History of Present Illness Consent: Risks, benefits, and alternatives have been discussed and questions answered. Patient agrees to proceed with procedure. Chief complaint: neoplasm screening Narrative: Geeta Stewart is a 52 year old female with colon polyp 5 years ago Review of Systems Constitutional: Constitutional: Denies headache(s) and Denies weakness Eyes: Eyes: Denies blurry vision ENT: Reports Normal hearing present, Denies headache(s) and Denies neck pain Cardiovascular: Cardiovascular: Denies chest pain and Denies dyspnea Respiratory: Respiratory: Denies dyspnea Gastrointestinal: Gastrointestinal: Reports no additional gastrointestinal complaints Genitourinary: Genitourinary: Denies dysuria Musculoskeletal: Musculoskeletal: Denies neck pain Integumentary/Breasts: Skin/Breast: Denies dry skin Neurologic: Reports Normal hearing present, Denies headache(s) and Denies weakness Psychiatric: Psychiatric: Denies anxiety Endocrine: Endocrine: Denies change in body appearance Hematologic/Lymphatic: Hematologic/Lymphatic: Denies easy bleeding Allergic/Immunologic: Allergic/Immunologic: Denies urticaria PMFSH Past Medical History Medical History (Updated 10/15/23 @ 08:32 by Cam Moise MD) Anxiety Chronic low back pain with sciatica Colon polyp Depression Dyslipidemia Environmental allergies Hernia 2011 Type 2 diabetes mellitus without complication, without long-term current use of insulin Unspecified osteoarthritis, unspecified site Vitamin D deficiency Surgical History Surgical History History of cholecystectomy History of hernia surgery 2008 and 2011 History of prior ablation treatment 2101 from hernia Hx of section 1990, 1994, 1997, 2003, 2010 [place] teeth extracted 1992 Family History Family History Sibling Depression Mother Hypertension Cerebrovascular accident Family history of transient ischemic attacks Father Family history of Alzheimer's disease Family history of blood dyscrasia Other Diabetes mellitus Family history of coronary artery disease Social History Social History Smoking status: Former smoker Alcohol intake: never Substance use: never Substance use type: does not use Living arrangements: with family Gender identity (if verbalized by the patient): Female Spiritual care concerns: No Meds Home Medications and Allergies Home Medications Medication Instructions Recorded Confirmed Type cholecalciferol (vitamin D3) 100 4,000 unit PO DAILY 01/11/20 10/15/23 History mcg (4,000 unit) capsule (Vitamin D3) loratadine 10 mg tablet (Claritin) 10 mg PO DAILY PRN Congestion 01/11/20 10/15/23 History empagliflozin 25 mg tablet 25 mg PO DAILY #90 tabs 04/13/23 10/15/23 Rx (Jardiance) dulaglutide 0.75 mg/0.5 mL 0.75 mg (0.5 mL) subcut WEEKLY #2 06/26/23 10/15/23 Rx subcutaneous pen injector mL (Trulicity) bupropion HCl 150 mg 24 hr tablet, 150 mg PO DAILY #30 tabs 09/25/23 10/15/23 Rx extended release (Wellbutrin XL) metformin 500 mg tablet,extended 1,000 mg PO BID 09/27/23 10/15/23 History release 24 hr sitagliptin phosphate 100 mg 100 mg PO DAILY #30 tabs 09/28/23 10/15/23 Rx tablet (Januvia) fluoxetine 20 mg capsule 20 mg PO DAILY #30 caps 10/11/23 10/15/23 Rx fluoxetine 40 mg capsule 40 mg PO DAILY #30 caps 10/11/23 10/15/23 Rx Allergies Allergy/AdvReac Type Severity Reaction Status Date / Time hydrocodone AdvReac Intermediate HAS ITCHING Verified 10/15/23 07:22 Vital Signs Vital Signs - 24 hr 10/15/23 07:12 Temperature 97.0 F L Pulse Rate 104 H Respiratory Rate 18 Blood Pressure 151/84 H Pulse Oximetry 96 Oxygen Delivery Room Air Exam Const: Gene
[2023-10-15 08:49] VITALS: BP 123/75; PULSE 86; RESP 17; O2SAT 94
[2023-10-15 08:59] VITALS: BP 121/73; PULSE 82; RESP 20; O2SAT 96
[2023-10-15 09:09] VITALS: BP 129/74; PULSE 80; RESP 19; O2SAT 98
== END 2023-10-15 09:14 | disposition home or self-care (01) ==
PROVIDERS: PCP Family Medicine; Visit Provider Internal Medicine Gastroenterology
PROC: 0DJD8ZZ Inspection of Lower Intestinal Tract, Via Natural or Artificial Opening Endoscopic (ICD-10-PCS; CPT 45378; principal; 2023-10-15 08:30)
DX: Z12.11 Encounter for screening for malignant neoplasm of colon (principal); K57.30 Diverticulosis of large intestine without perforation or abscess without bleeding; K64.8 Other hemorrhoids; Z86.010 Personal history of colon polyps; E11.9 Type 2 diabetes mellitus without complications; E78.5 Hyperlipidemia, unspecified; F41.9 Anxiety disorder, unspecified; F32.A Depression, unspecified; E55.9 Vitamin D deficiency, unspecified; E66.01 Morbid (severe) obesity due to excess calories; Z68.41 Body mass index [BMI] 40.0-44.9, adult; Z79.84 Long term (current) use of oral hypoglycemic drugs; Z79.85 Long-term (current) use of injectable non-insulin antidiabetic drugs
CPT/HCPCS: 45378; 82948; J2704; J7120

== ENCOUNTER 2024-05-05 08:02 | Outpatient (CLI) | payer OTHER, SELFPAY ==
[2024-05-05 18:50] LABS: Basophils Absolute Auto 0.1 K/mm3 (0.0-0.1); Basophils Percent Auto 1.2 % (0.2-1.2); Eosinophils Absolute Auto 0.2 K/mm3 (0-0.3); Eosinophils Percent Auto 2.3 % (0-4.4); Hematocrit 51.2 % (37.0-47.0); Hemoglobin 16.3 g/dL (12.0-15.0); Immature Granulocyte Absolute 0.05 K/mm3 (0.00-0.031); Immature Granulocyte Percent A 0.5 % (0-0.5); Lymphocytes Absolute Auto 3.05 K/mm3 (0.9-3.2); Lymphocytes Percent Auto 31.1 % (18.3-44.2); Mean Corpuscular HGB Conc 31.8 g/dl (32-36); Mean Corpuscular Hemoglobin 29.9 pg (26-34); Mean Corpuscular Volume 93.9 fl (80-100); Mean Platelet Volume 11.1 fl (7.4-10.4); Monocytes Absolute Auto 0.8 K/mm3 (0.1-0.6); Monocytes Percent Auto 8.2 % (2.6-8.5); Neutrophils Absolute Auto 5.6 K/mm3 (1.3-6.7); Neutrophils Percent Auto 56.7 % (45.5-73.1); Platelet Count Result 270 k/mm3 (150-375); Red Blood Count 5.45 M/mm3 (4.2-5.4); Red Cell Distribution Width 13.1 % (11.5-14.5); White Blood Count 9.8 K/mm3 (4.5-10.0)
[2024-05-05 19:31] LABS: Alanine Aminotransferase 48 U/L (6-35); Albumin Level 4.5 g/dL (3.5-5.1); Alkaline Phosphatase 189 U/L (38-126); Anion Gap 12 mmol/L (4-12); Aspartate Amino Transferase 48 U/L (14-36); Bilirubin,Total 0.4 mg/dL (0.2-1.3); Blood Urea Nitrogen 12 mg/dL (7-17); Calcium 9.5 mg/dL (8.4-10.2); Carbon Dioxide 26 mmol/L (22-30); Chloride 99 mmol/L (98-107); Cholesterol 220 mg/dL (0-200); Estimated Glomerular Filt Rate > 60; Glucose 350 mg/dL (65-110); HDL Direct 38 mg/dL; Potassium 4.1 mmol/L (3.4-5.0); Sodium 137 mmol/L (137-145); Triglycerides 409 mg/dL (<150)
[2024-05-05 19:42] LABS: LDL Cholesterol Direct 124 mg/dL
[2024-05-07 11:55] LABS: Hemoglobin A1C 11.1 % (<5.7)
== END 2024-05-05 08:03 | disposition home or self-care (01) ==
LOC: ANHGOSHLAB 08:04
PROVIDERS: PCP Family Medicine; Visit Provider Nurse Practitioner Family
DX: E78.5 Hyperlipidemia, unspecified (principal); E11.9 Type 2 diabetes mellitus without complications; Z00.00 Encounter for general adult medical examination without abnormal findings; Z13.29 Encounter for screening for other suspected endocrine disorder
CPT/HCPCS: 36415; 80053; 80061; 83036; 84443; 85025

== ENCOUNTER 2024-05-05 08:16 | Emergency (ER) | payer OTHER, SELFPAY ==
--- NOTE | 2024-05-05 08:28 | ED.URI ---
HPI - URI/Sore Throat General Chief Complaint: Upper Respiratory Infection Stated Complaint: Cold Symptoms/Abscess Time Seen by Provider: 05/05/24 08:40 Source: patient and RN notes reviewed Mode of arrival: ambulatory Limitations: no limitations History of Present Illness HPI Narrative: 53-year-old female presents with multiple concerns. She reports she has an abscess on her lower abdomen that has been there for a week, and recently started draining. She also reports she has had cold symptoms for about 4 days, earache, sore throat, productive cough that is worse at night. She denies fever, body aches, chills, sweats. Reports she has been taking [id number] medications for her upper respiratory symptoms MD elicited complaint: cough, nasal congestion and other (abscess) Related Data Home Medications Medication Instructions Recorded Confirmed cholecalciferol (vitamin D3) 50 50 mcg PO DAILY 10/31/23 05/05/24 mcg (2,000 unit) capsule Allergies Allergy/AdvReac Type Severity Reaction Status Date / Time hydrocodone AdvReac Intermediate HAS ITCHING Verified 05/05/24 08:24 Review of Systems Review of Systems: CONSTITUTIONAL: Denies malaise, chills, sweats, or fever. EYES: Denies visual changes, redness, or discharge. ENT: Reports rhinorrhea, congestion, otalgia and sore throat. CARDIOVASCULAR: Denies chest pain, palpitations, or edema. RESPIRATORY: Reports productive cough. Denies dyspnea. GASTROINTESTINAL: Denies abdominal pain, nausea, vomiting, diarrhea SKIN: Reports an abscess on her lower abdomen MUSCULOSKELETAL: Denies myalgia. NEUROLOGIC: Denies headache. All systems reviewed & are unremarkable except as noted in HPI and below PMFSH Past Medical History Medical History (Updated 05/05/24 @ 08:45 by Evie Silverio NP) Anxiety Chronic low back pain with sciatica Colon polyp Depression Dyslipidemia Environmental allergies Hernia 2012 Skin lesion of cheek Type 2 diabetes mellitus without complication, without long-term current use of insulin Unspecified osteoarthritis, unspecified site Vitamin D deficiency Surgical History Surgical History History of cholecystectomy History of hernia surgery 2008 and 2011 History of prior ablation treatment 2101 from hernia Hx of section 1990, 1994, 1997, 2003, 2010 [place] teeth extracted 1992 Family History Family History Sibling Depression Mother Hypertension Cerebrovascular accident Family history of transient ischemic attacks Father Family history of Alzheimer's disease Family history of blood dyscrasia Other Diabetes mellitus Family history of coronary artery disease Social History Social History (Updated 10/31/23 @ 13:08 by Tonya Austin MA) Smoking status: Former smoker Alcohol intake: never Substance use: never Substance use type: does not use Do You Feel Safe in your Home?: No Lack of Transportation: No Lack of Food: Never True Current Housing: I Have Housing Concerned About Future Housing: No Difficulty Paying Gas/Electric Bills: No Difficulty Paying for Meds: No Currently Unemployed: No Education: Trade/Vocational Certificate Difficulty w/ Childcare or Family Care: No Living arrangements: with family Occupation/Education: unemployed Gender identity (if verbalized by the patient): Female Spiritual care concerns: No Agree to blood products: Yes Comments At time of signature, agree with nursing past medical, surgical, social and family history. There is no relevant family history pertinent to the presenting complaint Exam Narrative: GENERAL: Well-appearing, well-nourished, and in no acute distress. HEAD: Normocephalic EYES: PERRLA, conjunctivae clear ENT: Nares clear, turbinates edematous and erythematous, clear discharge. Mucous membranes moist. TM
[2024-05-05 08:30] VITALS: BP 124/90; PULSE 107; RESP 14; TEMP 37; O2SAT 97
== END 2024-05-05 08:51 | disposition home or self-care (01) ==
PROVIDERS: Emergency Provider Nurse Practitioner
DX: L02.211 Cutaneous abscess of abdominal wall (principal); J06.9 Acute upper respiratory infection, unspecified; Z87.891 Personal history of nicotine dependence; E78.5 Hyperlipidemia, unspecified; E11.9 Type 2 diabetes mellitus without complications; M19.90 Unspecified osteoarthritis, unspecified site; E55.9 Vitamin D deficiency, unspecified
CPT/HCPCS: 99213; G0463

== ENCOUNTER 2024-07-09 10:10 | Outpatient (CLI) | payer OTHER, SELFPAY ==
[2024-07-09 19:34] LABS: Hemoglobin 16.5 g/dL (12.0-15.0); Mean Corpuscular Hemoglobin 30.3 pg (26-34); Mean Corpuscular Volume 91.9 fl (80-100); Platelet Count Result 231 k/mm3 (150-375); Red Blood Count 5.44 M/mm3 (4.2-5.4); Red Cell Distribution Width 12.7 % (11.5-14.5); White Blood Count 6.7 K/mm3 (4.5-10.0)
[2024-07-09 20:36] LABS: Alanine Aminotransferase 66 U/L (6-35); Albumin Level 4.4 g/dL (3.5-5.1); Alkaline Phosphatase 156 U/L (38-126); Anion Gap 15 mmol/L (4-12); Aspartate Amino Transferase 51 U/L (14-36); Bilirubin,Total 0.2 mg/dL (0.2-1.3); Blood Urea Nitrogen 13 mg/dL (7-17); Calcium 8.9 mg/dL (8.4-10.2); Carbon Dioxide 23 mmol/L (22-30); Chloride 100 mmol/L (98-107); Cholesterol 228 mg/dL (0-200); Estimated Glomerular Filt Rate > 60; Glucose 318 mg/dL (65-110); HDL Direct 41 mg/dL; Potassium 4.2 mmol/L (3.4-5.0); Sodium 138 mmol/L (137-145); Triglycerides 366 mg/dL (<150)
[2024-07-09 20:47] LABS: LDL Cholesterol Direct 144 mg/dL
[2024-07-09 21:20] LABS: Free T4 Free Thyroxine 0.86 ng/mL (0.78-2.19)
[2024-07-09 21:32] LABS: Hemoglobin A1C 11.2 % (<5.7)
== END 2024-07-09 10:11 | disposition home or self-care (01) ==
LOC: ANHGOSHLAB 10:13
PROVIDERS: PCP Family Medicine; Visit Provider Nurse Practitioner
DX: E55.9 Vitamin D deficiency, unspecified (principal); Z13.1 Encounter for screening for diabetes mellitus; Z13.220 Encounter for screening for lipoid disorders; Z13.29 Encounter for screening for other suspected endocrine disorder; Z13.0 Encounter for screening for diseases of the blood and blood-forming organs and certain disorders involving the immune mechanism
CPT/HCPCS: 36415; 80053; 80061; 82607; 83036; 84439; 84443; 85027

== ENCOUNTER 2024-08-15 09:39 | Outpatient (CLI) | payer OTHER, SELFPAY ==
[2024-08-15 18:37] LABS: Creatinine Urine 28.3 mg/dL
[2024-08-15 18:46] LABS: MALB Creatinine Ratio 49.8 mg/g (0-30); Microalbumin Urine Random 14.1 mg/L (0-16.7)
== END 2024-08-15 09:40 | disposition home or self-care (01) ==
LOC: ANHGOSHLAB 09:41
PROVIDERS: PCP Family Medicine; Visit Provider Nurse Practitioner Family
DX: E11.9 Type 2 diabetes mellitus without complications (principal)
CPT/HCPCS: 82043

== ENCOUNTER 2024-09-03 14:34 | Outpatient (RCR) | payer OTHER, SELFPAY ==
--- NOTE | 2024-09-04 08:13 | OPREHPOC ---
Outpatient Therapy Plan of Care This is a Multidisciplinary Plan of Care that may contain components documented by all disciplines (PT, OT, and ST.) PT Problem 1 PT Problem #1 Knowledge Deficit PT Goal 1 Goal / Goal Update Pt to be IND with issued HEP Target Visit 10 PT Problem 2 PT Problem #2 Pain PT Goal 1 Goal / Goal Update 1. Pt to report pain no greater than 3/10 in the last week. 2. Pt to report 75% improvement in overall symptoms. 3. Pt to report being able to perform 2 hours of house work without needing to take a rest. Target Visit 10 PT Problem 3 PT Problem #3 Impaired Range of Motion PT Goal 1 Goal / Goal Update 1. Pt to improve active shoulder flexion and abduction to 140 deg bekah PT Problem 4 PT Problem #4 Impaired Strength PT Goal 1 Goal / Goal Update 1. Pt to be able to lift and carry 20lb from ground level 2. Pt to be able to lift 5lb overhead PT Problem 5 PT Problem #5 Impaired Functional Mobil PT Goal 1 Goal / Goal Update 1. Pt to be able to carry 5lb weight on stairs to simulate carrying groceries inside. Target Visit 10
--- NOTE | 2024-09-04 08:13 | PTOPEVAL1 ---
Assessment and note entered by Reji Haddad, PT, DPT Evaluation Information Assessment Status Evaluation Diagnosis chronic pain ICD-10 Condition Codes (PT) Pain in low back M54.50,M25.511,M25.561,Pain in left knee M25.562 Subjective Information Pt states 12 years ago she stepped on a toy and did the splits, and pulled every muscle from her toe to her shoulder . She states from this incident she got a hernia and now her entire R side hurts her. She states her shoulder hurts to move it, states she cannot do the dished and laundry in the same day without crying herself to sleep. She states her R ankle clicks when you push on it . States she would like to get healthy go be able to go on a mission trip. Reported Pain Level Pain Score 5: Self Report Assessment PT Clinical Summary Pt presents to therapy today for her initial evaluation with a diagnosis of L hip, low back, and bekah knee pain, she also reports R shoulder pain this date. Today pt reports pain with all active and resisted motion of her bekah shoulder and bekah LEs. She demonstrates decreased body awareness and movement mechanics with a functional assessment. Pt educated on need to increase daily activity. Pt reports that pain limited her daily function. Skilled physical therapy services are indicated to promote improved movement mechanics, to improve mobility and strength, and to return to prior level of function. Plan of Care Interventions Electrical Stimulation,Gait Training,Hot Pack/Cold Pack,Manual Therapy,Neuro Re-education,Patient/ Caregiver Educati,Therapeutic Activities, Therapeutic Exercise PT Services Indicated Yes Treatment Frequency and 1x/wk for 10 visits Duration These treatments will address the objective and functional deficits as defined above. The patient will be advanced safely and appropriately in order for the patient to progress towards his/her prior level of function. Additional exercises will be introduced and as well as a comprehensive home exercise program upon discharge, if needed, ?to ensure carryover of functional gains achieved in the clinic. This treatment plan has been reviewed and agreement upon by the patient.
--- NOTE | 2024-09-18 13:39 | PCPTNOTE ---
Patient called & cancelled scheduled appointment this date due to being ill. Cancelled the rest of her remaining appointments d/t having too much going on with the holidays. Has been rescheduled for 11/06/24.
--- NOTE | 2024-11-12 13:49 | PTOPDC ---
Assessment and note entered by Reji Haddad, PT, DPT Evaluation Information Assessment Status Discharge - Pt Not Present Diagnosis chronic pain ICD-10 Condition Codes (PT) Pain in low back M54.50,Pain in right shoulder M25 .511,Pain in right knee M25.561,Pain in left knee M25.562 Subjective Information Pt called today to cancel her appointment. States she does not have time to complete therapy at this time. Educated that she would need a new order whenever she plans on returning. Assessment PT Clinical Summary Pt was evaluated on 09/03/24 and did not attend any follow up appointment. Will be discharged at this time.
== END 2024-11-12 14:36 | disposition home or self-care (01) ==
LOC: ANHGOSHPT 14:34
PROVIDERS: PCP Family Medicine; Visit Provider Family Medicine
DX: M54.50 Low back pain, unspecified (principal); M25.511 Pain in right shoulder; M25.561 Pain in right knee; M25.562 Pain in left knee
CPT/HCPCS: 97110; 97161

== ENCOUNTER 2025-03-07 18:57 | Emergency (ER) | payer OTHER, SELFPAY ==
[2025-03-07 19:04] VITALS: BP 129/60; PULSE 103; RESP 16; TEMP 36.6; O2SAT 98
--- NOTE | 2025-03-07 19:05 | ED_ITS ---
HPI - General Adult General Chief complaint: Ear Stated complaint: LT Ear Pain / sore throat / congestion Time Seen by Provider: 03/07/25 19:05 Source: patient Mode of arrival: ambulatory Limitations: no limitations History of Present Illness HPI narrative: 54-year-old female patient presents to [facility] with complaints of left ear pain that started yesterday. Patient states she has also been having some swe lling to the left cheek. Patient states she put in some peroxide to her left ear yesterday and felt a pop. Denies fevers body aches or chills. Patient states she is just now getting over a cold. Related Data Home Medications ?Medication ?Instructions ?Recorded ?Confirmed ?Last Taken ?Type cholecalciferol (vitamin D3) 50 50 mcg PO DAILY 10/31/23 02/13/25 Unknown History mcg (2,000 unit) capsule fluoxetine 60 mg tablet mg 03/07/25 Unknown History Allergies Allergy/AdvReac Type Severity Reaction Status Date / Time hydrocodone AdvReac Intermediate HAS ITCHING Verified 03/07/25 19:00 Review of Systems Review of Systems: CONSTITUTIONAL: Denies fever, chills, or sweats. EYES: Denies visual changes, redness, or discharge. ENT: Denies rhinorrhea, congestion, sore throat, Positive left otalgia. CARDIOVASCULAR: Denies chest pain, palpitations, or edema. RESPIRATORY: Denies cough or dyspnea. GASTROINTESTINAL: Denies abdominal pain, nausea, vomiting, or diarrhea. GENITOURINARY: Denies dysuria or hematuria. SKIN: Denies rash or itching. MUSCULOSKELETAL: Denies back pain, joint pain, or myalgia. NEUROLOGIC: Denies headache, numbness, or weakness. PSYCHIATRIC: Denies anxiety or depression. [facility] Past Medical History Medical History Skin lesion of cheek Colon polyp Hernia 2011 Dyslipidemia Chronic low back pain with sciatica Environmental allergies Anxiety Type 2 diabetes mellitus without complication, without long-term current use of insulin Unspecified osteoarthritis, unspecified site Vitamin D deficiency Depression Surgical History Surgical History History of hernia surgery 2008 and 2011 [place] teeth extracted 1992 History of prior ablation treatment 2101 from hernia Hx of section 1990, 1994, 1997, 2004, 2010 History of cholecystectomy Family History Family History Sibling Depression Mother Hypertension Cerebrovascular accident Family history of transient ischemic attacks Father Family history of Alzheimer's disease Family history of blood dyscrasia Other Diabetes mellitus Family history of coronary artery disease Social History Social History Smoking status: Former smoker Alcohol intake: never Substance use: never Substance use type: does not use Do You Feel Safe in your Home?: No Lack of Transportation: No Lack of Food: Never True Current Housing: I Have Housing Concerned About Future Housing: No Difficulty Paying Gas/Electric Bills: No Difficulty Paying for Meds: No Currently Unemployed: No Education: Trade/Vocational Certificate Difficulty w/ Childcare or Family Care: No Living arrangements: with family Occupation/Education: unemployed Gender identity (if verbalized by the patient): Female Spiritual care concerns: No Agree to blood products: Yes Comments At the time of my signature I agree with nursing past medical history, surgical, social, and family history. There is no relevant family history pertinent to the presenting complaint. Exam Narrative: GENERAL: Well-appearing, well-nourished, and in no acute distress. HEAD: Normocephalic, atraumatic. EYES: PERRLA and EOMI. ENT: Nares clear, no rhinorrhea or epistaxis. Mucous membranes moist. patient does have some swelling and narrowing noted to the left canal. There is some swelling noted to left cheek along the jaw area. On inspection it does appear to have some white pus noted to the canal. There is some impacted earwax noted to bilateral ears. NECK: Supple. No lymphadenopathy CHEST: Clear to auscultation. No respiratory distress. HEART: Regular rate and rhythm. No murmur heard. Normal peripheral pulses. ABDOMEN: Soft, nontender, nondistended, normal active bowel sounds. EXTREMITIES: Normal range of motion. No edema. SKIN: Warm, dry, no rash. NEURO: No focal deficits. Alert and oriented x3. Course Course Level of Care: Express Care Visit Vital Signs Vital signs: Vital Signs Temperature 36.6 C 03/07/25 19:04 Pulse Rate 103 H 03/07/25 19:04 Respiratory Rate 16 03/07/25 19:04 Blood Pressure 129/60 03/07/25 19:04 Pulse Oximetry 98 03/07/25 19:04 Temperature 36.6 C 03/07/25 19:04 Pulse Rate 103 H 03/07/25 19:04 Respiratory Rate 16 03/07/25 19:04 Blood Pressure 129/60 03/07/25 19:04 Pulse Oximetry 98 03/07/25 19:04 Vital signs reviewed. Medical Decision Making MDM Narrative Medical decision making narrative: Plan of care patient is discharged home with antibiotic ear drops for otitis externa infection. Discussed with patient she can take Tylenol and ibuprofen as needed for pain. Patient is aware the plan of care denies any other questions or concerns at this time. Differential Diagnosis Differential Diagnosis: Differential diagnosis: Otitis media, otitis externa, perforated TM, infection of the outer ear, foreign body or cerumen impaction, ruptured TM, acute mastoiditis, ligament otitis externa, dehydration, pneumonia, sepsis, dental or intraoral infection, TMJ dysfunction Allergic rhinitis, chronic sinusitis, tonsillitis, acute sinusitis, infectious mononucleosis, seasonal influenza, pertussis, diphtheria, meningococcal disease, viral syndrome, viral bronchitis, RSV, COVID-19 Vital Signs Vital Signs: Vital Signs Temperature 36.6 C 03/07/25 19:04 Pulse Rate 103 H 03/07/25 19:04 Respiratory Rate 16 03/07/25 19:04 Blood Pressure 129/60 03/07/25 19:04 Pulse Oximetry 98 03/07/25 19:04 Temperature 36.6 C 03/07/25 19:04 Pulse Rate 103 H 03/07/25 19:04 Respiratory Rate 16 03/07/25 19:04 Blood Pressure 129/60 03/07/25 19:04 Pulse Oximetry 98 03/07/25 19:04 Critical Care Time Critical Care Time Critical Care Time: No Discharge Plan Discharge Clinical Impression: Acute otitis externa of left ear Patient Disposition: Home Condition: Stable Instructions: Antibiotic Form Additional Instructions: Return to the emergency department if: You have severe ear pain. You are suddenly unable to hear at all. You have new swelling in your face, behind your ears, or in your neck. You suddenly cannot move part of your face. Your face suddenly feels numb. Contact your healthcare provider if: You have a fever. Your signs and symptoms do not get better after 2 days of treatment. Your signs and symptoms go away for a time, but then come back. You have questions or concerns about your condition or care. Medicines: NSAIDs , such as ibuprofen, help decrease swelling, pain, and fever. This medicine is available with or without a doctor's order. NSAIDs can cause stomach bleeding or kidney problems in certain people. If you take blood thinner medicine, always ask if NSAIDs are safe for you. Always read the medicine label and follow directions. Do not give these medicines to children under 6 months of age without direction from your child's healthcare provider. Acetaminophen decreases pain and fever. It is available without a doctor's order. Ask how much to take and how often to take it. Follow directions. Acetaminophen can cause liver damage if not taken correctly. Ear drops that contain an antibiotic may be given. The antibiotic helps treat a bacterial infection. You may also be given steroid medicine. The steroid helps decrease redness, swelling, and pain. How to use eardrops: Lie down on your side with your infected ear facing up. Carefully drip the correct number of eardrops into your ear. Have another person help you if possible. Gently move the outside part of your ear back and forth to help the medicine reach your ear canal. Stay lying down in the same position (with your ear facing up) for 3 to 5 minutes. Prevent otitis externa: Do not put cotton swabs or foreign objects in your ears. Wrap a clean moist washcloth around your finger, and use it to clean your outer ear and remove extra ear wax. Use ear plugs when you swim. Dry your outer ears completely after you swim or bathe. Patient Language: Portuguese Prescriptions: New ofloxacin 0.3 % drops 10 drp EACH EAR DAILY 7 Days Qty: 10 0RF No Action fluoxetine 60 mg tablet cholecalciferol (vitamin D3) 50 mcg (2,000 unit) capsule 50 mcg PO DAILY hydroxyzine pamoate 25 mg capsule 25 mg PO QHS PRN (Reason: sleep or anxiety) Qty: 30 1RF lisinopril 5 mg tablet 2.5 mg PO DAILY Qty: 45 3RF (DME) glucometer See Rx Instructions .Route .MEDSUPPLY Qty: 1 0RF Rx Instructions: check blood sugar daily and prn. Needs Monitor, test strips, and lancets. dulaglutide 1.5 mg/0.5 mL pen injector 1.5 mg subcut WEEKLY Qty: 2 5RF Patient Comments: Jardiance 25 mg tablet 25 mg PO DAILY Qty: 90 1RF bupropion HCl 300 mg tablet extended release 24 hr 300 mg PO DAILY Qty: 90 1RF metformin 500 mg tablet extended release 24 hr 1,000 mg PO BID Qty: 360 1RF Januvia 100 mg tablet 100 mg PO DAILY Qty: 90 1RF (DME) Dexcom G7 reader and sensors See Rx Instructions .Route .MEDSUPPLY Qty: 1 0RF Rx Instructions: check blood sugar daily and prn, needs sensors reader and sensors Follow-up/Referrals: Estelita Ridley MD [Primary Care Provider] - Time of Disposition: 19:13
== END 2025-03-07 19:14 | disposition home or self-care (01) ==
PROVIDERS: Emergency Provider Nurse Practitioner Family; PCP Family Medicine
DX: H60.92 Unspecified otitis externa, left ear (principal); Z87.891 Personal history of nicotine dependence; E78.5 Hyperlipidemia, unspecified; E11.9 Type 2 diabetes mellitus without complications; Z79.84 Long term (current) use of oral hypoglycemic drugs; M19.90 Unspecified osteoarthritis, unspecified site; E55.9 Vitamin D deficiency, unspecified
CPT/HCPCS: 99213; G0463

== ENCOUNTER 2025-03-13 13:15 | Outpatient (RCR) | payer OTHER, SELFPAY ==
--- NOTE | 2025-02-26 12:55 | OPREHPOC ---
Outpatient Therapy Plan of Care This is a Multidisciplinary Plan of Care that may contain components documented by all disciplines (PT, OT, and ST.) PT Problem 1 PT Problem #1 Knowledge Deficit PT Goal 1 Goal / Goal Update 1. Pt to be IND with issued HEP Target Visit 8 PT Problem 2 PT Problem #2 Pain PT Goal 1 Goal / Goal Update 1. Pt to report pain no greater than 3/10 in the last week. 2. Pt to report being able to walk for 20 mins for exercise without pain. Target Visit 8 PT Problem 3 PT Problem #3 Impaired Functional Mobility PT Goal 1 Goal / Goal Update 1. Pt to improve LEFS score by 15% 2. Pt to be able to ambulate 5 stairs with a reciprocal pattern Target Visit 8
--- NOTE | 2025-02-26 12:56 | PTOPEVAL1 ---
Assessment and note entered by Reji Haddda, PT, DPT Evaluation Information Assessment Status Evaluation Diagnosis chronic pain ICD-10 Condition Codes (PT) Radiculopathy, lumbar region M54.16,Pain in right shoulder M25.511,Pain in left shoulder M25.512, Pain in right knee M25.561,Pain in left knee M25. 562 Subjective Information Pt states she was evaluated last fall and did not follow through with therapy. She states she is still not moving a lot and her pain is getting worse. She states she cannot do dished and laundry in the same day without increase in pain. States she did a lot of walking at a conference last week and it took her 2 days to recover. States she wants to do more volunteering but there's no way her body could handle all of that. Pt states overall she sits too much. She states she just wants to make baby steps, if her goals is too high she will give up. Pt states she did the splits in 2011 when she tripped on a toy and is still paying for it. Also reports bekah shoulder and low back pain. States stepping up on the step into her house is hard. Reported Pain Level Pain Score 3: Self Report Assessment PT Clinical Summary Pt presents to therapy today for her initial evaluation with multiple chronic pain diagnoses. Today she demonstrates decreased core strength, decreased hip strength, and poor body mechanics. Pts reports poor day to day movement that is somewhat limited by motivation as well as pain. Skilled therapy services are indicated to address the deficits noted above, to manage pain, and to improve functional mobility. Plan of Care Interventions Electrical Stimulation,Gait Training,Hot Pack/Cold Pack,Manual Therapy,Neuro Re-education,Patient/ Caregiver Education,Therapeutic Activities, Therapeutic Exercise PT Services Indicated Yes Treatment Frequency and 1x/wk for 6 visits Duration These treatments will address the objective and functional deficits as defined above. The patient will be advanced safely and appropriately in order for the patient to progress towards his/her prior level of function. Additional exercises will be introduced and as well as a comprehensive home exercise program upon discharge, if needed, ?to ensure carryover of functional gains achieved in the clinic. This treatment plan has been reviewed and agreement upon by the patient.
--- NOTE | 2025-03-19 09:00 | PCPTNOTE ---
Patient called to cancel therapy due to having a headache.
--- NOTE | 2025-03-27 13:12 | PTOPDC ---
Assessment and note entered by Jeffrey Dooley, PT Evaluation Information Assessment Status Discharge - Pt Not Present Diagnosis chronic pain ICD-10 Condition Codes (PT) Radiculopathy, lumbar region M54.16,Pain in right shoulder M25.511,Pain in left shoulder M25.512, Pain in right knee M25.561,Pain in left knee M25. 562 Subjective Information Reports that due to time limitations she will be cancelling all future therapy visits. Please refer to last treatment note for discharge status. Assessment PT Clinical Summary Patient to be discharged at this time per patient request due to limited time availability. Please refer to last treatment note for discharge status. Plan of Care PT Services Indicated Yes
== END 2025-03-27 13:57 | disposition home or self-care (01) ==
LOC: ANHGOSHPT 13:15
PROVIDERS: PCP Family Medicine; Visit Provider Nurse Practitioner Family
DX: M54.40 Lumbago with sciatica, unspecified side (principal); M25.561 Pain in right knee; M25.562 Pain in left knee; M25.511 Pain in right shoulder; M25.512 Pain in left shoulder; G89.29 Other chronic pain
CPT/HCPCS: 97110; 97161

== ENCOUNTER 2025-04-02 12:52 | Outpatient (CLI) | payer OTHER, SELFPAY ==
--- NOTE | ~2025-04-02 | MM_ITS ---
EXAMINATION: MM screening [facility] BI w miguel HISTORY: Screening TECHNIQUE: Craniocaudal and mediolateral oblique 3-D tomosynthesis images were obtained and synthetic 2-D images were generated. CAD analysis was submitted and interpreted. COMPARISON: 09/04/2022 through 04/01/2012 BREAST PARENCHYMAL COMPOSITION: The breasts are almost entirely fatty. FINDINGS: There is no evidence of suspicious mass, calcification, or architectural distortion to sug gest malignancy in either breast. There has been no suspicious interval change. IMPRESSION: 1. No mammographic evidence of malignancy. 2. Recommend routine screening mammography in one year. BI-RADS Category 1: Negative Reviewed, dictated and finalized at location B.
== END 2025-04-02 12:53 | disposition home or self-care (01) ==
LOC: MICIMG 12:52
PROVIDERS: PCP Family Medicine; Visit Provider Obstetrics & Gynecology Gynecology
DX: Z12.31 Encounter for screening mammogram for malignant neoplasm of breast (principal)
CPT/HCPCS: 77063; 77067

== ENCOUNTER 2025-04-23 16:33 | Emergency (ER) | payer OTHER, SELFPAY ==
--- NOTE | 2025-04-23 16:42 | ED.EAR ---
HPI - Ear Problem General Chief complaint: Ear Stated complaint: Ear Pain/Sore Throat Source: patient Mode of arrival: ambulatory Limitations: no limitations History of Present Illness HPI Narrative: Patient is a 54 year old female who presents to the clinic with complaints of a sore throat and right ear pain x 3 days. Pain is isolated to right ear. She has not been taking anything over the counter. Denies any ear drainage, fever, body aches, chills, nausea, or vomiting. Related Data Home Medications ?Medication ?Instructions ?Recorded ?Confirmed ?Last Taken ?Type cholecalciferol (vitamin D3) 50 50 mcg PO DAILY 10/31/23 02/13/25 Unknown History mcg (2,000 unit) capsule fluoxetine 60 mg tablet mg 03/07/25 Unknown History Allergies Allergy/AdvReac Type Severity Reaction Status Date / Time hydrocodone AdvReac Intermediate HAS ITCHING Verified 04/23/25 16:51 Review of Systems Review of Systems: CONSTITUTIONAL: Denies malaise, chills, ?or fever. EYES: Denies visual changes, redness, or discharge. ENT: Denies rhinorrhea, congestion, and sinus pain. ?Reports R ear pain and sore throat. CARDIOVASCULAR: Denies chest pain, palpitations, or edema. RESPIRATORY: Denies cough or dyspnea. GASTROINTESTINAL: Denies abdominal pain, nausea, vomiting, diarrhea SKIN: Denies rash or itching. MUSCULOSKELETAL: Denies myalgia. NEUROLOGIC: Denies headache. All systems reviewed & are unremarkable except as noted in HPI and below PMFSH Past Medical History Medical History Skin lesion of cheek Colon polyp Hernia 2011 Dyslipidemia Chronic low back pain with sciatica Environmental allergies Anxiety Type 2 diabetes mellitus without complication, without long-term current use of insulin Unspecified osteoarthritis, unspecified site Vitamin D deficiency Depression Surgical History Surgical History History of hernia surgery 2008 and 2011 [place] teeth extracted 1992 History of prior ablation treatment 2101 from hernia Hx of section 1990, 1994, 1997, 2004, 2011 History of cholecystectomy Family History Family History Sibling Depression Mother Hypertension Cerebrovascular accident Family history of transient ischemic attacks Father Family history of Alzheimer's disease Family history of blood dyscrasia Other Diabetes mellitus Family history of coronary artery disease Social History Social History Smoking status: Former smoker Alcohol intake: never Substance use: never Substance use type: does not use Do You Feel Safe in your Home?: No Lack of Transportation: No Lack of Food: Never True Current Housing: I Have Housing Concerned About Future Housing: No Difficulty Paying Gas/Electric Bills: No Difficulty Paying for Meds: No Currently Unemployed: No Education: Trade/Vocational Certificate Difficulty w/ Childcare or Family Care: No Living arrangements: with family Occupation/Education: unemployed Gender identity (if verbalized by the patient): Female Spiritual care concerns: No Agree to blood products: Yes Comments At time of signature, I have reviewed and agree with nursing past medical, surgical, social and family history unless otherwise noted. Please see nursing chart for further information. There is no relevant family history pertinent to the presenting complaint. Exam Narrative: GENERAL: Well-appearing, well-nourished, and in no acute distress. HEAD: Normocephalic. EYES: PERRLA, conjunctivae clear. ENT: Nares clear. Mucous membranes moist. ?R canal erythematous with tragal tenderness. Bilateral TMs with normal light reflex. No drainage. Oropharynx not erythematous and without lesions. ?No drooling, no hoarseness, no trismus, uvula midline. NECK: Supple. No lymphadenopathy. CHEST: Clear to auscultation, breath sounds equal. No wheezing, rhonchi, rales, or stridor. No respiratory distress, speaks in full sentences. HEART: Regular rate and rhythm. No murmur heard. SKIN: Warm, dry, no rash. NEURO: Alert and oriented x3. PSYCH: Normal mood and affect. Course Course Level of Care: Express Care Visit Vital Signs Vital signs: Vital Signs Temperature 96.1 F L 04/23/25 16:47 Pulse Rate 94 04/23/25 16:47 Respiratory Rate 16 04/23/25 16:47 Blood Pressure 119/73 04/23/25 16:47 Pulse Oximetry 98 04/23/25 16:47 Temperature 96.1 F L 04/23/25 16:47 Pulse Rate 94 04/23/25 16:47 Respiratory Rate 16 04/23/25 16:47 Blood Pressure 119/73 04/23/25 16:47 Pulse Oximetry 98 04/23/25 16:47 Reviewed Medical Decision Making MDM Narrative Medical decision making narrative: Discussed physical exam findings. Ofloxacin, claritin, flonase, and albuterol prescriptions given. Strep negative. Advised supportive measures and signs/symptoms to go to the ER. Pt is appropriate for outpatient treatment and follow up. Differential Diagnosis Differential Diagnosis: otitis media, otitis externa, foreign body, TM rupture, viral infection, strep, URI Vital Signs Vital Signs: Vital Signs Temperature 96.1 F L 04/23/25 16:47 Pulse Rate 94 04/23/25 16:47 Respiratory Rate 16 04/23/25 16:47 Blood Pressure 119/73 04/23/25 16:47 Pulse Oximetry 98 04/23/25 16:47 Temperature 96.1 F L 04/23/25 16:47 Pulse Rate 94 04/23/25 16:47 Respiratory Rate 16 04/23/25 16:47 Blood Pressure 119/73 04/23/25 16:47 Pulse Oximetry 98 04/23/25 16:47 Reviewed. Lab Data Labs: Lab Results 04/23/25 Range/Units 16:53 POC Grp A Strep Screen Negative (Negative) Critical Care Time Critical Care Time Critical Care Time: No Discharge Plan Discharge Clinical Impression: Upper respiratory infection Qualifiers: URI type: unspecified URI Qualified Code(s): J06.9 - Acute upper respiratory infection, unspecified Otitis externa Qualifiers: Otitis externa type: unspecified type Chronicity: acute Laterality: right Qualified Code(s): H60.501 - Unspecified acute noninfective otitis externa, right ear Patient Disposition: Home Condition: Stable Instructions: Swimmer's Ear (ED), Upper Respiratory Infection (DC) Additional Instructions: Swimmer's ear is an infection in the outer ear canal, which runs from your eardrum to the outside of your head. It's often caused by water that remains in your ear, creating a moist environment that encourages the growth of bacteria. Take antibiotic drops as directed. Take Claritin as directed. Use Flonase as directed. Tylenol and ibuprofen every 8 hours as needed to reduce fever, pain Avoid water or anything into the ear for one week Please follow up with your PCP or for any persistent or worsening symptoms go to ER immediately. Follow up with your personal physician for further evaluation and treatment within 3-5days. If your symptoms persist, change or worsen significantly, go to the emergency department for further evaluation. Patient Language: Tamazight Prescriptions: New ofloxacin 0.3 % drops 10 drp RIGHT EAR DAILY 7 Days Qty: 10 0RF loratadine [Claritin] 10 mg tablet 10 mg PO DAILY Qty: 20 0RF fluticasone propionate [Flonase Allergy Relief] 50 mcg/actuation spray,suspension 1 spray intranasal BID Qty: 16 0RF Rx Instructions: administer into each nostril albuterol sulfate [Ventolin HFA] 90 mcg/actuation HFA aerosol inhaler 2 puff inhalation QID PRN (Reason: shortness of breath or wheezing) Qty: 6.7 0RF No Action fluoxetine 60 mg tablet ofloxacin 0.3 % drops 10 drp EACH EAR DAILY 7 Days Qty: 10 0RF cholecalciferol (vitamin D3) 50 mcg (2,000 unit) capsule 50 mcg PO DAILY lisinopril 5 mg tablet 2.5 mg PO DAILY Qty: 45 3RF (DME) glucometer See Rx Instructions .Route .MEDSUPPLY Qty: 1 0RF Rx Instructions: check blood sugar daily and prn. Needs Monitor, test strips, and lancets. Jardiance 25 mg tablet 25 mg PO DAILY Qty: 90 1RF metformin 500 mg tablet extended release 24 hr 1,000 mg PO BID Qty: 360 1RF Januvia 100 mg tablet 100 mg PO DAILY Qty: 90 1RF (DME) Dexcom G7 reader and sensors See Rx Instructions .Route .MEDSUPPLY Qty: 1 0RF Rx Instructions: check blood sugar daily and prn, needs sensors reader and sensors dulaglutide 1.5 mg/0.5 mL pen injector 1.5 mg subcut WEEKLY Qty: 6 1RF Patient Comments: ' hydroxyzine pamoate 25 mg capsule 25 mg PO QHS PRN (Reason: sleep or anxiety) Qty: 90 1RF bupropion HCl 300 mg tablet extended release 24 hr 300 mg PO DAILY Qty: 90 1RF Follow-up/Referrals: Estelita Ridley MD [Primary Care Provider] - Time of Disposition: 17:05
[2025-04-23 16:47] VITALS: BP 119/73; PULSE 94; RESP 16; TEMP 35.6; O2SAT 98
[2025-04-23 16:57] LABS: EDSTREPNEGPOS1 Negative (Negative)
== END 2025-04-23 17:10 | disposition home or self-care (01) ==
PROVIDERS: PCP Family Medicine
DX: J06.9 Acute upper respiratory infection, unspecified (principal); H60.501 Unspecified acute noninfective otitis externa, right ear; Z87.891 Personal history of nicotine dependence; E78.5 Hyperlipidemia, unspecified; E11.9 Type 2 diabetes mellitus without complications; M19.90 Unspecified osteoarthritis, unspecified site; E55.9 Vitamin D deficiency, unspecified
CPT/HCPCS: 87081; 87880; 99213; G0463

== ENCOUNTER 2025-05-15 13:59 | Outpatient (CLI) | payer OTHER, SELFPAY ==
--- OUTSIDE RECORDS SUMMARY | 2025-05-15 14:02 | XMS_ITS | Referral Summary ---
Author Organization [address] Address [address] [place] [address] Care Team Providers Care Manager Contract Name Role Phone Tin Ridley MD Primary Care Provider Allergies No known active allergies Medications SITagliptin (JANUVIA) 100 mg tabletIndicatio ns:type 2 diabetes mellitus Take 100 mg by mouth daily. Active cholecalciferol (VITAMIN D-3) 2,000 unit tabletIndicatio ns:Vitamin D Deficiency Take 2,000 Units by mouth daily. Active neomycin-polymy nakita-HC (CORTISPORIN) 3.5-10,000-1 mg/mL-unit/mL-% otic suspensionIndic ations:Otitis Externa Administer 3 drops into the right ear 3 (three) times a day. 10 mL 9 Active metFORMIN XR (GLUCOPHAGE XR) 500 mg 24 hr tabletIndicatio ns:type 2 diabetes mellitus Take 2,000 mg by mouth daily with dinner. Active FLUoxetine (PROzac) 60 mg tabletIndicatio ns:depression Take 60 mg by mouth daily. Active buPROPion XL (WELLBUTRIN XL) 150 mg 24 hr tabletIndicatio ns:Anxiety with Depression Take 150 mg by mouth daily. Active Active Problems Problem Noted Date Diagnosed Date Strep pharyngitis 11/12/2018 Assessment & Plan (11/12/2018 6:11 PM ORTHOTIST/PROSTHETIST): Complete antibiotic as prescribed Tylenol or Motrin for fever/pain Gargle with warm salt water (1tsp salt/1 cup water) Suck on ice chips, popsicles, cough drops, or throat lozenges You may return to work, daycare, or school 24 hours after starting antibiotics and you are fever free Do not share food, drinks, or utensils Replace your toothbrush within 24 hours after starting antibiotics and again after 4-5 days. I recommend washing your pillow cases and sheets after 24 hours Follow up with your PCP if you are not getting better Sore throat 11/12/2018 Assessment & Plan (11/12/2018 6:36 PM ORTHOTIST/PROSTHETIST): You may gargle with warm salt water, suck on throat lozenges, or throat sprays Use a decongestant for your congestion. You can dry up your runny nose with an antihistamine Elevate your pillow at night when you are sleeping to reduce the drainage down your throat. Please follow up with your PCP if you are not getting any better Acute otitis media 11/12/2018 Assessment & Plan (11/12/2018 6:36 PM ORTHOTIST/PROSTHETIST): You can take Tylenol/Motrin for pain/fever Complete antibiotics as directed If you were prescribed ear drops- they contain a steroid & will help reduce redness, swelling, pain in the ear You can use warm moist heat to decrease pain Follow up w PCP if you are not getting better in 3 days For children, you may want to have the ear rechecked after 10 days. Social History Tobacco Use Types Packs/Day Years Used Date Smoking Tobacco: Never Assessed Tobacco Cessation:Counseling Given: No Comments Unknown Sex and Gender Information Value Date Recorded Sex Assigned at Not on file Legal Sex Female 5:38 PM ORTHOTIST/PROSTHETIST Gender Identity Not on file Sexual Orientation Not on file Last Filed Vital Signs Vital Sign Reading Time Taken Comments Blood Pressure 132/88 11/12/2018 5:57 PM ORTHOTIST/PROSTHETIST Pulse 82 11/12/2018 5:57 PM ORTHOTIST/PROSTHETIST Temperature 37.3 C (99.2 F) 11/12/2018 5:57 PM ORTHOTIST/PROSTHETIST Respiratory Rate 18 11/12/2018 5:57 PM ORTHOTIST/PROSTHETIST Oxygen Saturation 98% 11/12/2018 5:57 PM ORTHOTIST/PROSTHETIST Inhaled Oxygen Concentration - - Weight 131.1 kg (289 lb) 11/12/2018 5:57 PM ORTHOTIST/PROSTHETIST Height 170.2 cm (5' 7) 11/12/2018 5:57 PM ORTHOTIST/PROSTHETIST Body Mass Index 45.26 11/12/2018 5:57 PM ORTHOTIST/PROSTHETIST Plan of Treatment Not on file Insurance [employer] Care Teams Manager Contract Relationship Specialty Start Date End Date Tin Ridley MD PCP - General Family Practice 11/12/18
--- OUTSIDE RECORDS SUMMARY | 2025-05-15 14:02 | XMS_ITS | Continuity of Care Document ---
Author Name [facility] Organization [facility] Care Team Providers Care Natural Gas Treating Unit Operator Name Role Phone [facility] Unavailable Unavailable Problems Combined list of problems from Department of [facility] and [facility] facilities. It does not include entries that were removed or entered in error. Problem Status Onset Date Problem Type Date of Resolution Comments Source allergies Active Condition [facility] headache Active Condition 35 yof wit h chronic h/a: daily h/a bitemporal, dull, nonsevere, every day. Takes caffeine, snores, dec sleep latency, overweight. Also has migraines 3x/week: +aura, bitemporal, moderate/severe , +photophobia. Also notes some nasal congestion, seasonal. [facility] ROUTINE GYNECOLOGICAL EXAM WITH CERVICAL PAP SMEAR Active Condition Patient with irritation of perineum with no evidence of infection. AZALIA and wet mount both negative. Suspect symptoms are secondary to hygeine issues. Advised on good hygeine x 10 min. G/C collected and results pending. test negative. [facility] Medications Combined list of outpatient medications from Department of [facility] and [facility] facilities.Medications provided include 1) outpatient medications from the last 15 months, and 2) patient-reported medications. Medication Details Route Status Patient Instructions Prescription Expires Prescription Number Last Dispense Date Ordering Provider Order Date Order Qty Source BUPROPION XL (bupropion HCl), 150 MG, TAB ER 24H, ORAL, [employer] 500 ea. BOTTLE Cancele d [id number] : 2023 0 Pharmac y Data Transac tion Service Facilit y JARDIANCE (EMPAGLIFLO ZIN), 25 MG, TABLET, ORAL, [employer] ING., 30 ea. BOTTLE Active [id number] 2023 90 Pharmac y Data Transac tion Service Facilit y Allergies, Adverse Reactions, Alerts Combined list of allergies from Department of [facility] and [facility] facilities. It does not include entries that were removed or entered in error. Substance Category Reaction Severity Reaction type Status Date Reported Comments Source NO OUTPUT FOR NCID [id number] Drug allergy (disorder) active 11/01/[address] [place] [address] Amauri FERRERA ([facility]) Immunizations Combined list of available immunizations from the Department of Defense and Veterans Affairs facilities. Immunization Series Date Given Administered By Site Reaction Lot Number CVX Code Drug Surgical Services Tech Status Comments Source COVID-19 (PFIZER), MRNA, LNP-S, PF, 30 MCG/0.3 ML DOSE 2 2020 208 complet ed PFR; [id number]; 1 [facility] COVID-19 (PFIZER), MRNA, LNP-S, PF, 30 MCG/0.3 ML DOSE 1 2020 208 complet ed PFR; [id number]; 1 [facility] Influenza, injectable, MDCK, quadrivalent, preservative 2018 SAIRA, () Not Given Influenza , injectabl e, MDCK, quadrival ent, preservat edmund DoD influenza, injectable, quadrivalent, preservative free 2016 ALUL, () Not Given influenza , injectabl e, quadrival ent, preservat edmund free DoD influenza, injectable, quadrivalent 2013 ALUL, RUSHDI DO () Not Given influenza , injectabl e, quadrival ent DoD Encounters Combined list of: 1) Encounters from Department of Veterans Affairs facilities going backup to the last 18 months, not all [place] inpatient encounters are included; 2) Encounters from the Department of Defense facilities going backup to 280 months. Location Location Details Encounter Type Encounter Number Reason For Visit Attending Provider ADM Date DC Date Status Disposition Source [address] [place] [address] Amauri FERRERA [facility] [place] [facility] Blue[place] OUTPATIENT [id number] annual pap TERENCE WILKINS 01/25 Released w/o Limitations [address] [place] [address] Amauri FERRERA [facility])([place] cott [facility] T[facility] Blue) [address] [place] [address] Amauri FERRERA [facility] [facility] Tm Green) OUTPATIENT [id number] frequen t Migrain MOE Mendiola 11/01 Released w/o Limitations [address] [place] [address] Amauri FERRERA [facility] cott [facility] T[facility] Green) Procedures Combined list of: 1) Procedures from Department of Veterans Affairs facilities going back up to thelast 18 months, not all [place] non-surgical procedures are included; 2) All procedures from the Department of Defense facilities. Procedure Procedure Type Code Date Perfomer Comments Lalo dixon Vaginal Wet Mount Smear Vaginal [place] Smear [id number] 01/25/2006 TERENCE WILKINS Screening papanicolaou smear; obtaining, preparing and conveyance of cervical or vaginal smear to laboratory 01/25/2006 TERENCE WILKINS Do D Vaginal AZALIA Prep Vaginal AZALIA Prep [id number] 01/25/2006 TERENCE WILKINS SCREENING PAPANICOLAOU SMEAR; OBTAINING, PREPARING AND CONVEYANCE OF CERVICAL OR VAGINAL SMEAR TO LABORATORY 01/25/2006 [facility] LOW CERVICAL SECTION 01/29/1995 [facility] EKG (SCALP) 08/27/1991 [facility] MEDICAL INDUCTION OF LABOR 08/27/1991 [facility] OTHER ARTIFICIAL RUPTURE OF MEMBRANES 08/27/1991 [facility] LOW CERVICAL SECTION 08/27/1991 DoD Social History Combined list of available smoking, tobacco, and other social history from Department of Defense and Veterans Affairs facilities. Social History Type Response Date Comment Lalo dixon This section is an empty social history section. DoD
--- OUTSIDE RECORDS SUMMARY | 2025-05-15 14:02 | XMS_ITS | Clinical Summary ---
Author Organization [facility] Address [address] [place] [address] Care Team Providers Care Outsole Rounder Name Role Phone Unavailable Primary Care Provider Unavailabl e Social History Tobacco Use Types Packs/Day Years Used Date Smoking Tobacco: Never Assessed Comments Unknown Sex and Gender Information Value Date Recorded Sex Assigned at Not on file Legal Sex Female 8:14 PM CDT Gender Identity Not on file Sexual Orientation Not on file Plan of Treatment Health Maintenance Due Date Last Done Comments Cervical Cancer Screening Pa p Smear (Age 30 to 64) Every 3 Years 1971 Colorectal Cancer Screening Colonoscopy (10 Years) 1971 Annual Physical 1974 Hepatitis C 1989 DTaP, Tdap and Td Vaccines ( 1 - Tdap) 1990 Hepatitis B Vaccines (1 of 3 - 19+ 3-dose series) 1990 Cervical Cancer Screening Pa p with HPV Testing (Age 30 to 64) Every 5 Years 2001 Cervical Cancer Screening with HPV 2001 Mammogram Screening 2011 Pneumococcal Vaccine: 50+ Ye ars (1 of 1 - PCV) 2021 Zoster Vaccines (1 of 2) 2021 COVID-19 Vaccine (2023-2 5 season) 2024 Meningococcal B Vaccine Aged Out No l onger eligible based on patient's age to complete this topic Meningococcal Vaccine Aged Out No christie lolis eligible based on patient's age to complete this topic RSV Immunizations Under 20 Months Aged Out No longer eligible based on patient's age to complete this topic
--- OUTSIDE RECORDS SUMMARY | 2025-05-15 14:03 | XMS_ITS | Clinical Summary ---
Author Organization [facility] Address [address] [place] [address] Care Team Providers Care Certified Flight Instructor Name Role Phone Zeyad Kilgore MD Primary Care Provider [phone] Source Comments [facility],non-owned Affiliates and Associated Physician Practices is amultiple site organization consisting of ambulatory clinics and hospital sitesin [place], [place] and [place]. This disclosure is being madepursuant to the Care Everywhere program and may not contain all information available regarding this patient. 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 Gender Identity Not on file Sexual Orientation Not on file Plan of Treatment Health Maintenance Due Date Last Done Comments COLOGUARD (AGES 45-75) - COL ON CA SCREENING 1971 COLON MONITORING 1971 COLONOSCOPY - COLON CA SCREENING 1971 CT COLONOGRAPHY - COLON CA SCREENING 1971 Colorectal Cancer Screening 1971 FIT - COLON CA SCREENING 1971 FLEX SIG - COLON CA SCREENING 1971 LIPID TESTING 1971 MAMMOGRAM 1971 HIV SCREENING 1986 HEPATITIS C SCREENING 10/28/1989 DTAP/TDAP/TD VACCINES (1 - Tdap) 1990 HEPATITIS B VACCINE (1 of 3 - 19+ 3-dose series) 1990 PAP SMEAR 1992 PNEUMOCOCCAL VACCINE 50+ (1 of 1 - PCV) 2021 ZOSTER VACCINE (1 of 2) 2021 COVID-19 VACCINE (1 - 2023-2 5 season) 2024 DEPRESSION SCREENING 10/29/2024 INFLUENZA VACCINE (#1) 2025 HIB VACCINE Aged Out No longer eligi ble based on patient's age to complete this topic HPV VACCINE Aged Out No longer eligi ble based on patient's age to complete this topic MENINGOCOCCAL (Group B) VACC INE SHARED DECISION-MAKING Aged Out No longer eligibl e based on patient's age to complete this topic MENINGOCOCCAL GROUPS A/C/Y/W VACCINE Aged Out No longer eligible b ased on patient's age to complete this topic Insurance Care Teams Certified Flight Instructor Relationship Specialty Start Date End Date Zeyad Kilgore MD [address] [place] [address] PCP - General 02/22/18
--- OUTSIDE RECORDS SUMMARY | 2025-05-15 14:03 | XMS_ITS | Encounter Summary ---
Author Organization [facility] Address [address] [place] [address] Care Team Providers Care Web Production Designer Name Role Phone Zeyad Kilgore MD Primary Care Provider [phone] Encounter Details Date Type Department Care Team (Late st Contact Info) Description 05/07/2024 Lab Requisition [facility] - DermPath Lab [address] [facility] [place] [phone] Teresita Austin DO [address] [facility] [address] [place] [address] Social History Tobacco Use Types Packs/Day Years Used Date Smoking Tobacco: Never Assessed Comments No Sex and Gender Information Value Date Recorded Sex Assigned at Not on file 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 Gender Identity Not on file Sexual Orientation Not on file documented as of this encounter Plan of Treatment Not on file documented as of this encounter Procedures Procedure Name Priority Date/Time Associated Diagnosis Comments DERMATOPATHOLOGY Routine 05/07/2024 10:5 2 AM CDT documented in this encounter Results * DERMATOPATHOLOGY (05/07/2024 10:52 AM CDT) Case Report Dermatopathology Report Case: [id number] Authorizing Provider: Teresita Austin DO Collected: 05/07/2024 10:52 AM Ordering Location: [facility] Physician [facility] - Received: 05/09/2024 06:43 AM DermPath Lab Pathologist: Chayito Chaney MD Specimen: Skin, right lower eyelid 2:36 PM CDT DERMATOPATHOLOGY LABORATORY Final Diagnosis Specimen A. 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 The specimen consists of a shave biopsy measuring 5x4x1 mm. Jar 0. 4 2:36 PM CDT DERMATOPATHOLOGY LABORATORY Microscopic Description Specimen A. SKIN, right lower eyelid: Embedded in a fibrous stroma, there are small duct-like spaces that are lined predominantly by two rows of epithelial cells, which have pale cytoplasm. Some of these duct-like structures have comma-like tails. There is amorphous eosinophilic material within the spaces. Adjacent to this, there is a cystic space that contains loosely aggregated cornified cells surrounded by epithelium that resembles normal epidermis. 4 2:36 PM CDT DERMATOPATHOLOGY LABORATORY Disclaimer An external and internal positive and negative controls are appropriate for the histochemical, immunohistochemical and immunofluorescence stain(s) in this case (if any), except where stated explicitly. The performance characteristics of the stain(s) cited in this report were developed and its performance characteristic determined by the Dermatopathology Laboratory at [facility], directed by Dr. Seth Chiang. These tests need not be, and therefore are not, approved by the [place] Food and Drug Administration. The tests are used for clinical purposes. Billing Codes Specimen Charges Stain Charges [id number] 1 4 2:36 PM CDT DERMATOPATHOLOGY LABORATORY Embedded Images 4 2:36 PM CDT DERMATOPATHOLOGY LABORATORY Pathology/Cytolo gy TISSUE SPECIMEN FROM SKIN / Unknown 05/07/2024 10:52 AM CDT 05/09/2024 6:43 AM CDT us Teresita Austin DO LAB - PATHOLOGY/CYTOLOGY ORDERABLES Final Result DERMATOPATHOLOGY LABORATORY [facility] - Department of Dermatology [address] [phone] documented in this encounter Visit Diagnoses Not on filedocumented in this encounter Care Teams Web Production Designer Relationship Specialty Start Date End Date Zeyad Kilgore MD [address] [place] [phone] PCP - General 02/22/18 documented as of this encounter
--- OUTSIDE RECORDS SUMMARY | 2025-05-15 14:03 | XMS_ITS | Clinical Summary ---
Author Organization [address] Address [address] [place] [phone] Care Team Providers Care Remote Sensing Engineer Name Role Phone Tin Ridley MD Primary [...] 11/12/2018 Assessment & Plan (11/12/2018 6:11 PM MEDIA RELATIONS DIRECTOR): Complete antibiotic as prescribed Tylenol or Motrin [...] 11/12/2018 Assessment & Plan (11/12/2018 6:36 PM MEDIA RELATIONS DIRECTOR): You may gargle with warm salt water, [...] 11/12/2018 Assessment & Plan (11/12/2018 6:36 PM MEDIA RELATIONS DIRECTOR): You can take Tylenol/Motrin for pain/fever Complete [...] on file Legal Sex Female 5:38 PM MEDIA RELATIONS DIRECTOR Gender Identity Not on file Sexual Orientation Not on file Obstetrics History Last Filed Vital Signs Vital Sign Reading Time Taken Comments Blood Pressure 132/88 11/12/2018 5:57 PM MEDIA RELATIONS DIRECTOR Pulse 82 11/12/2018 5:57 PM MEDIA RELATIONS DIRECTOR Temperature 37.3 C (99.2 F) 11/12/2018 5:57 PM MEDIA RELATIONS DIRECTOR Respiratory Rate 18 11/12/2018 5:57 PM MEDIA RELATIONS DIRECTOR Oxygen Saturation 98% 11/12/2018 5:57 PM MEDIA RELATIONS DIRECTOR Inhaled Oxygen Concentration - - Weight 131.1 kg (289 lb) 11/12/2018 5:57 PM MEDIA RELATIONS DIRECTOR Height 170.2 cm (5' 7) 11/12/2018 5:57 PM MEDIA RELATIONS DIRECTOR Body Mass Index 45.26 11/12/2018 5:57 PM MEDIA RELATIONS DIRECTOR Plan of Treatment Not on file Insurance [employer] Care Teams Remote Sensing Engineer Relationship Specialty Start Date End Date Tin Ridley MD PCP - General Family Practice 11/12/18
[2025-05-15 18:07] LABS: Hematocrit 50.2 % (37.0-47.0); Hemoglobin 16.4 g/dL (12.0-15.0); Immature Granulocyte Percent A 0.5 % (0-0.5); Lymphocytes Absolute Auto 2.75 K/mm3 (0.9-3.2); Mean Corpuscular HGB Conc 32.7 g/dl (32-36); Mean Corpuscular Hemoglobin 29.6 pg (26-34); Mean Corpuscular Volume 90.6 fl (80-100); Nucleated Red Blood Cells Absolute Auto 0.000 K/mm3 (0.0-0.012); Nucleated Red Blood Cells Perc 0.0 % (0.0-0.2); Platelet Count Result 268 k/mm3 (150-375); Red Blood Count 5.54 M/mm3 (4.2-5.4); White Blood Count 11.7 K/mm3 (4.5-10.0)
[2025-05-15 18:42] LABS: MALB Creatinine Ratio 39.4 mg/g (0-30)
[2025-05-15 18:46] LABS: Alanine Aminotransferase 52 U/L (6-35); Albumin Level 4.6 g/dL (3.5-5.1); Alkaline Phosphatase 123 U/L (38-126); Anion Gap 12 mmol/L (4-12); Aspartate Amino Transferase 45 U/L (14-36); Bilirubin,Total 0.7 mg/dL (0.2-1.3); Blood Urea Nitrogen 8 mg/dL (7-17); Calcium 9.8 mg/dL (8.4-10.2); Carbon Dioxide 21 mmol/L (22-30); Chloride 105 mmol/L (98-107); Cholesterol 246 mg/dL (0-200); Estimated Glomerular Filt Rate > 60; Glucose 259 mg/dL (65-110); HDL Direct 44 mg/dL; Potassium 4.4 mmol/L (3.4-5.0); Sodium 138 mmol/L (137-145); Total Protein 8.6 g/dL (6.3-8.2); Triglycerides 226 mg/dL (<150)
[2025-05-15 19:41] LABS: Hemoglobin A1C 10.8 % (<5.7)
== END 2025-05-15 14:00 | disposition home or self-care (01) ==
LOC: ANHGOSHLAB 14:00
PROVIDERS: PCP Family Medicine; Visit Provider Nurse Practitioner Family
DX: E11.9 Type 2 diabetes mellitus without complications (principal); E78.5 Hyperlipidemia, unspecified; I10 Essential (primary) hypertension
CPT/HCPCS: 36415; 80053; 80061; 82043; 82306; 83036; 84443; 85025

== ENCOUNTER 2025-06-19 15:48 | Outpatient (CLI) | payer OTHER, SELFPAY ==
[2025-06-19 18:53] LABS: Alanine Aminotransferase 68 U/L (6-35); Albumin Level 4.6 g/dL (3.5-5.1); Alkaline Phosphatase 109 U/L (38-126); Anion Gap 10 mmol/L (4-12); Aspartate Amino Transferase 42 U/L (14-36); Bilirubin,Total 0.6 mg/dL (0.2-1.3); Blood Urea Nitrogen 16 mg/dL (7-17); Calcium 9.9 mg/dL (8.4-10.2); Carbon Dioxide 27 mmol/L (22-30); Chloride 102 mmol/L (98-107); Cholesterol 139 mg/dL (0-200); Estimated Glomerular Filt Rate > 60; Glucose 194 mg/dL (65-110); HDL Direct 45 mg/dL; Potassium 4.7 mmol/L (3.4-5.0); Sodium 139 mmol/L (137-145); Total Protein 8.0 g/dL (6.3-8.2); Triglycerides 137 mg/dL (<150)
[2025-06-19 18:59] LABS: MALB Creatinine Ratio 26.1 mg/g (0-30)
[2025-06-19 19:49] LABS: Vitamin B12 > 1000.0 pg/mL (239-931)
== END 2025-06-19 15:49 | disposition home or self-care (01) ==
LOC: ANHGOSHLAB 15:52
PROVIDERS: PCP Family Medicine
DX: E11.65 Type 2 diabetes mellitus with hyperglycemia (principal)
CPT/HCPCS: 36415; 80053; 80061; 82043; 82607